=== PATIENT | male | born 1955 | race Caucasian/White ===

== ENCOUNTER 2024-02-07 11:27 | Inpatient (IN) | payer MEDICARE, SELFPAY ==
--- NOTE | ~2024-02-07 | IR_ITS ---
Ahmet removal Patient presents with a non-tunneled dialysis catheter. Patient no longer requires dialysis. Referring physician requests removal. The right neck suture was cut. The dialysis catheter was removed entirely from the right neck. Pressure was held until hemostasis was assured. A dry sterile was applied. There were no immediate complications. IR/IR cvc remov tunnel wo prt/melter clerk Impression: Ahmet removal This procedure was performed by Nathan Rondon PA-C and supervised by Dr. Heller Electronically signed by: Dioni Heller MD 04/04/2024 01:29 PM TRAM YU
--- NOTE | ~2024-02-07 | CT_ITS ---
EXAMINATION: CT HEAD WITHOUT CONTRAST CLINICAL INFORMATION: Fall. Head pain. COMPARISON: None available. TECHNIQUE: Contiguous axial imaging was performed from the skull base to vertex without intravenous administration of contrast. This CT examination was performed using dose optimization techniques as appropriate, variously including the following: *Automated exposure control *Adjustment of mA and/or kV according to patient size (this includes techniques or standardized protocols for targeted exams where dose is matched to indication/reason for exam; i.e. extremities or head) *Use of iterative reconstruction technique DLP: 744 mGy-cm FINDINGS: There is prominence of the sulci and ventricles. Deep white matter gliosis noted, all compatible with involutional change. Punctate bilateral basal ganglia calcification noted. No intra or extra-axial fluid collection or hemorrhage, mass, or mass effect. Calvarium is intact. CT/CT head/brain wo IV con IMPRESSION: No acute intracranial pathology. Electronically signed by: Robe Long MD 02/07/2024 03:42 PM EDT
--- NOTE | ~2024-02-07 | CT_ITS ---
EXAMINATION: CT CHEST WITH CONTRAST CLINICAL INFORMATION: Pain after falling COMPARISON: None available. TECHNIQUE: Multidetector volumetric CT imaging of the chest was obtained after the administration of 50 mL of Omnipaque 350 intravenous contrast without immediate adverse reactions. Axial MIP volume rendering provided. Sagittal and coronal reformatted images were obtained. This CT examination was performed using dose optimization techniques as appropriate, variously including the following: *Automated exposure control *Adjustment of mA and/or kV according to patient size (this includes techniques or standardized protocols for targeted exams where dose is matched to indication/reason for exam; i.e. extremities or head) *Use of iterative reconstruction technique DLP: 255 mGy-cm FINDINGS: ALARM INSTALLER: Unremarkable LUNGS: Lungs clear. No suspicious masses or nodules or consolidations. No pneumothorax. MEDIASTINUM: Heart size normal. No pericardial effusion. Thoracic inlet unremarkable. No significant adenopathy. Extensive coronary artery calcification. PLEURA: There is no pleural effusion. No pleural mass or thickening. AXILLA: No lymphadenopathy. UPPER ABDOMEN: Extensive hepatic steatosis. OSSEOUS STRUCTURES: Extensive spondylitic change and ankylosis throughout the thoracic spine. No fracture. Osseous structures elsewhere, including the sternum, appear intact. CT/CT chest w IV con IMPRESSION: No acute findings in the chest. Fleischner guidelines were followed. Electronically signed by: Robe Long MD 02/07/2024 04:14 PM EDT
--- NOTE | ~2024-02-07 | CT_ITS ---
EXAMINATION: CT CERVICAL SPINE WITHOUT CONTRAST CLINICAL INFORMATION: Pain after falling COMPARISON: None available. TECHNIQUE: Axial helical scans with sagittal and coronal reformats. This CT examination was performed using dose optimization techniques as appropriate, variously including the following: *Automated exposure control *Adjustment of mA and/or kV according to patient size (this includes techniques or standardized protocols for targeted exams where dose is matched to indication/reason for exam; i.e. extremities or head) *Use of iterative reconstruction technique DLP: 331 mGy-cm FINDINGS: Extensive surgical changes in the C-spine. Hardware intact. Streak artifact noted. Ankylosis noted throughout the cervical spine but no fracture or destructive lesion. No encroachment on the spinal canal. Prevertebral soft tissues are normal. CT/CT cervical spine wo IV con IMPRESSION: Extensive postsurgical change. No fracture. Fleischner guidelines were followed. Electronically signed by: Robe Long MD 02/07/2024 04:07 PM EDT
--- NOTE | ~2024-02-07 | IR_ITS ---
CLINICAL HISTORY: Patient requires dialysis. The patient presents to interventional radiology for placement of a non-tunneled central venous catheter for hemodialysis. PROCEDURES: 1. Real-time ultrasound-guided access into the right internal jugular vein after documentation of selected vessel patency, and permanent imaging storing in the patient record. 2. Placement of a 12.0 fr 20 cm non-tunneled, dual-lumen hemodialysis catheter. Clinician: Nathan Rondon PA-C MEDICATIONS: -Lidocaine 1% 10 mL SQ. -For additional details, please see nursing flowsheet. COMPLICATIONS: None. ESTIMATED BLOOD LOSS: <5 ml SPECIMENS: None FLUOROSCOPY TIME: 1.3 min PROCEDURE NOTE: Emergent consent was obtained from the hospital service. The patient was placed supine on the fluoroscopy table. A timeout was performed. The right neck and chest was prepped and draped in usual sterile fashion. Local anesthesia was administered to the access site with lidocaine. Under ultrasound guidance, the right internal jugular vein was accessed with a 4 Fr micropuncture set. A 0.035 in wire was advanced into the IVC. The tract in the vein was serially dilated. Over the wire, a 12.0 fr 20 non-tunneled, dual-lumen hemodialysis catheter was advanced, with the tip located at the cavoatrial junction. The wire was removed. The catheter was tested, flushed, and sutured to the skin. A permanent fluoroscopic image of the chest was saved to PACS. The catheter ports were packed with heparin per routine protocol. The patient was stable after the procedure and was transferred to the medical floor. There were no immediate complications. FINDINGS: 1. Patent right internal jugular vein. 2. Placement of a non-tunneled, dual-lumen hemodialysis catheter as above. 3. Catheter flushes and aspirates very well with a 10 mL syringe. No pneumothorax. IR/IR cvc insert central tunnel IMPRESSION: Placement of a non-tunneled hemodialysis catheter in the right internal jugular vein. PLAN: -The catheter may be used immediately. This procedure was performed by Nathan Rondon PA-C, and directly supervised by Dr. Heller. Electronically signed by: Dioni Heller MD 02/08/2024 01:23 PM EDT Workstation: [id number]
--- NOTE | ~2024-02-07 | CT_ITS ---
EXAMINATION: CT ABDOMEN AND PELVIS WITH CONTRAST CLINICAL INFORMATION: Pain after falling COMPARISON: None available. TECHNIQUE: Multidetector volumetric images were obtained from the superior aspect of the liver through the pubic symphysis following administration 85 mL of Omnipaque 350 intravenous contrast. Sagittal and coronal reformatted images were obtained on the technologist's workstation. Oral contrast: No This CT examination was performed using dose optimization techniques as appropriate, variously including the following: *Automated exposure control *Adjustment of mA and/or kV according to patient size (this includes techniques or standardized protocols for targeted exams where dose is matched to indication/reason for exam; i.e. extremities or head) *Use of iterative reconstruction technique DLP: 599 mGy-cm FINDINGS: LUNG BASES: The visualized lung bases are unremarkable. LIVER, GALLBLADDER, AND BILIARY TREE: Extensive hepatic steatosis. No focal hepatic mass or intrahepatic biliary dilatation. The gallbladder is unremarkable with no evidence of radiopaque gallstones, gallbladder wall thickening, or obvious pericholecystic inflammatory changes. PANCREAS: Unremarkable. SPLEEN: Unremarkable. ADRENAL GLANDS: Unremarkable. KIDNEYS AND URETERS: There is mild bilateral perinephric stranding which appears chronic. No hydronephrosis. There is a 3 mm nonobstructive stone, in the lower left kidney. Small complex cysts are observed which are too small to characterize. These could be followed nonemergently, with ultrasound. The largest cyst in the left kidney measures 4 mm. BLADDER: Unremarkable. GASTROINTESTINAL TRACT: Moderate diverticular disease present in the sigmoid but no diverticulitis. No bowel obstruction. No right or left lower quadrant inflammatory change. Appendix normal. ABDOMINAL WALL: No significant hernia is appreciated. LYMPH NODES: Normal. VASCULAR: Aorta is atherosclerotic but nonaneurysmal. PELVIC VISCERA: Calcifications in the prostate. Seminal vesicles normal in size. No ascites or adenopathy deep in the pelvis. OSSEOUS STRUCTURES: There is spondylitic and degenerative change present in the lumbar spine but no fracture. Degenerative spurring in the SI joints. No pelvic fracture. CT/CT abdomen pelvis w IV con IMPRESSION: Unremarkable study. No acute findings. No evidence for solid organ injury. Advanced hepatic steatosis is noted. Fleischner guidelines were followed. Electronically signed by: Robe Long MD 02/07/2024 04:18 PM EDT
--- NOTE | ~2024-02-07 | CT_ITS ---
CT guided biopsy PROCEDURES: 1. Limited preprocedure CT of the abdomen. Permanent images saved in PACS. 2. CT-guided nontargeted biopsy of the right kidney. 3. Limited preprocedure CT of the abdomen. Permanent images saved in PACS. CLINICIANS: Nathan Rondon PA-C MEDICATIONS: -Versed and Fentanyl , and lidocaine 1% 10 mL SQ -Antibiotics: None -For additional details, please see nursing flowsheet. COMPLICATIONS: None ESTIMATED BLOOD LOSS: < 5 ml CONTRAST: None SPECIMENS: 3 x 18 g cores were placed in saline MODERATE SEDATION TIME: 25 min PROCEDURE NOTE: The procedure, risks, benefits, and alternatives were carefully explained to the patient and written informed consent was obtained. The patient was placed prone on the CT table. A timeout was performed. A limited CT of the abdomen was performed to localize the right kidney and choose appropriate needle entry and trajectory. The patient was prepped and draped in usual sterile fashion. The skin and deeper soft tissues were anesthetized with lidocaine. Under CT guidance, a 17 gague trocar needle was advanced to the right kidney. An 18 gauge biopsy device was inserted through the trocar needle advanced into the right kidney. A total of 3 18 gague cores performed. The specimen was placed in saline. A Gelfoam slurry was then administered through the trocar needle and into the kidney. The needle was removed. A dry dressing was applied and secured with Tegaderm. There were no immediate complications. The patient was stable after the procedure and was transferred to the post anesthesia care unit. The procedure was done under moderate sedation with a dedicated nurse for monitoring of vital signs. CT/CT biopsy renal RT Impression: CT-guided nontargeted right renal biopsy This procedure was performed by Nathan Rondon PA-C and supervised by Dr Heller. Electronically signed by: Dioni Heller MD 02/29/2024 02:16 PM EDT
[2024-02-07 11:33] VITALS: BP 132/86; PULSE 116; O2SAT 98
--- NOTE | 2024-02-07 11:43 | ED_ITS ---
HPI - General Adult General Chief complaint: ETOH/Substance Use Stated complaint: ON FLOOR UNK HOW LONG,ETOH WITHDRAWAL SX,DRANK T-1 Time Seen by Provider: 02/07/24 11:42 Source: patient and EMS Mode of arrival: EMS Limitations: no limitations History of Present Illness ED Provider: Le Cheung PA-C HPI narrative: Patient is a 68 year old assigned male at with no reported medical history presenting to the emergency department today after a fall. Patient states that he does drink alcohol daily. Patient states that he had a fall and was on the floor for 4 hours. Patient denies hitting his head or any loss of consciousness. Patient states that he lives with his daughter, in her basement. EMS states that the neighbors called 911 because they hadn't seen the patient in 4 days. Patient denies any dizziness, lightheadedness, abdominal pain, nausea, vomiting, fever, chills, blurry vision, double vision, loss of vision, chest pain, difficulty breathing, shortness of breath, back pain, night sweats, pain with urination, increased urinary frequency, increased urinary urgency, blood in his urine or stool, syncope or a near syncopal episode, recent trauma or falls, bowel incontinence, bladder incontinence, or any other complaints at this time. Patient states that he has never been to a hospital or ever seen a doctor. Relieving factors: none Exacerbating factors: none Associated symptoms: denies other symptoms Treatments prior to arrival: none Related Data Allergies Allergy/AdvReac Type Severity Reaction Status Date / Time Unable to Assess Allergy Verified 02/07/24 12:05 Review of Systems 2 Constitutional: Constitutional: Reports no additional constitutional complaints, Denies chills, Denies fever(s) and Denies night sweats Eyes: Eyes: Reports no additional eye complaints, Denies blurry vision, Denies change in vision, Denies diplopia, Denies eye discharge, Denies loss of vision and Denies eye pain ENT: Denies dizziness Cardiovascular: Cardiovascular: Reports no additional cardiovascular complaints, Denies chest pain, Denies lightheadedness, Denies Loss of Consciousness and Denies dyspnea Respiratory: Respiratory: Reports no additional respiratory complaints and Denies dyspnea Gastrointestinal: Gastrointestinal: Reports no additional gastrointestinal complaints, Denies abdominal pain, Denies melena, Denies hematochezia, Denies change in bowel habits and Denies change in stool character Genitourinary: Genitourinary: Reports no additional male genitourinary complaints, Denies hematuria, Denies oliguria, Denies difficulty urinating, Denies dysuria, Denies urinary frequency, Denies urinary hesitancy, Denies urinary incontinence and Denies urinary urgency Musculoskeletal: Musculoskeletal: Reports no additional musculoskeletal complaints, Denies numbness and Denies tingling Neurologic: Denies dizziness, Denies loss of vision, Denies numbness and Denies tingling Psychiatric: Psychiatric: Reports no additional psychiatric complaints Endocrine: Endocrine: Reports no additional endocrine complaints Hematologic/Lymphatic: Hematologic/Lymphatic: Reports no additional hematologic/lymphatic complaints Allergic/Immunologic: Allergic/Immunologic: Reports no additional allergic/immunologic complaints [facility] Past Medical History Attestation statement: The following information was validated with the patient. Source: old records reviewed and nursing notes reviewed Social History Social History Smoked in Last 30 Days: No Use of substances other than those prescribed or required for medical reasons: No Advance Directives: No Advance Directives Information Provided: No Do you have a plan to hurt others: No Plan Physical Exam ED Vital Signs: Vital Signs - 24 hr 02/07/24 12:02 02/07/24 12:09 02/07/24 15:07 Temperature 99.3 F 99.3 F 98.1 F Pulse Rate 113 H 113 H 114 H Respiratory Rate 16 16 18 Blood Pressure 142/78 H 142/78 H 127/94 H Pulse Oximetry 98 98 99 Oxygen Delivery Method Room Air Room Air Room Air BMI result Body Mass Index 23.2 Const Other: covered in own feces and urine General: cooperative, no acute distress, alert and awake Nutritional Appearance: cachectic Orientation/consciousness: oriented to person and oriented to place Limitations: no limitations HENMT Head: Yes normal to inspection and Yes atraumatic Ears: hearing grossly normal bilaterally and external ears normal General nose exam: Normal external nose present, no nasal discharge noted and no epistaxis Face and sinus: Yes normal facial exam, No abrasion and No laceration Mouth: Normal oral and palatal mucosa present, no drooling and no muffled voice Eyes General: appearance normal, both eyes and all related structures Periorbital: periorbital findings normal Eyelids: Yes eyelids normal Conjunctivae: conjunctivae normal Pupils: Equal, round and reactive pupils present EOM: EOMs intact bilaterally Neck Neck: Yes normal visual inspection, Yes full ROM and Yes no lymphadenopathy Chest Other: bruising present to the right and left anterior flanks Resp Effort & Inspection: normal respiratory effort and able to speak in complete sentences GI Inspection: Yes normal to inspection Neuro General: oriented to person, oriented to place and moves all extremities Cranial nerves: Yes Equal, round and reactive pupils present Cognition (Neuro): normal cognition Extrem General: Yes normal to inspection, Yes full ROM and Yes capillary refill normal Psych Appearance: grossly normal Mental Status: mental status grossly normal Affect: normal affect Attitude: cooperative Thought process: Normal thought process present Thought content: Normal thought content present Insight: Good insight present (Psych) Medications Administered Discontinued Medications Generic Name Dose Route Start Last Admin Trade Name Freq PRN Reason Stop Dose Admin Iohexol 85 ml 02/07/24 14:09 02/07/24 14:10 Iohexol 350 Mg/Ml 100 Ml Infus..Btl IV 02/07/24 14:10 85 ml ONCE ONE Administration Medical Decision Making Medical Decision Making MDM Narrative: Patient is a 68 year old assigned male at with no reported medical history presenting to the emergency department today after being found down in his feces and urine post possible fall. Patient's physical exam was as notd in the physical exam portion of this note. Patient's blood work showed multiple abnormalities including NA 130, K 4.9, chloride 89, CO2 11, GAP 35, BUN 156, CR 14.36, total bili 1.6, AST 102, ALT 68, ALK phos 125, and total CR 946. Patient's EKG was unremarkable. Patient's CT chest, abd/pelvis, c-spine, and head were unremarkable. I consulted with the shell fisherman who recommended medical admission. I spoke to the hospital team who agreed to admission. I explained my physical exam findings as well as all test results to the patient. I answered all questions asked by the patient. Patient verbalized agreement and understanding with this treatment plan and admission. Differential Diagnosis Differential Diagnoses: The differential diagnosis associated with the presentation includes Kidney failure Rhabdo Fall Admission/Observation Consideration of admission/observation: Escalation of care including admission/observation considered Patient admitted. Consult Healthcare Provider Management of the patient was discussed with: Hospitalist (agreed to admission as noted in the MDM Rationale portion of this note.) and Employment Coordinator (spoke to Dr. Lujan as noted in the MDM Rationale portion of this note.) Lab Data [facility] Lab Attestation statement: I reviewed the patient's lab results. My interpretation of these results are in the MDM Rationale portion of this note. 02/07/24 14:35 02/07/24 14:35 Labs: Lab Results 02/07/24 02/07/24 02/07/24 Range/Units 12:50 13:07 13:14 WBC (4.8-10.8) X10*3/uL RBC (4.60-5.80) X10*6/uL Hgb (14.0-18.0) g/dl Hct (42.0-52.0) % MCV (80.0-98.0) fL MCH (27.0-33.0) pg MCHC (31.0-36.0) g/dl RDW (11.0-16.0) % Plt Count (160-400) X10*3/uL MPV (9.4-12.4) fL Immature Gran % (Auto) (0.0-0.4) % Neut % (Auto) (45-73) % Lymph % (Auto) (20-40) % Foster % (Auto) (2-11) % Eos % (Auto) (0-4) % Baso % (Auto) (0-2) % Lymph # (Auto) (1.2-4.9) X10*3/uL Foster # (Auto) (0.1-1.2) X10*3/uL Eos # (Auto) (0.0-0.4) X10*3/uL Baso # (Auto) (0.0-0.2) X10*3/uL Abs Immat Gran (auto) (0.00-0.03) X10*3/uL Absolute Neuts (auto) (2.0-8.3) x10*3/uL Absolute Nucleated RBC (0.0-0.012) X10*3/uL Nucleated RBC % (auto) (0.0-0.2) /100WBC Smear Tech's Comments PT 11.6 (11.1-13.3) SEC INR 1.0 (0.9-1.1) APTT 28.7 (26.0-36.8) SEC VBG pH 7.30 L (7.32-7.43) VBG pCO2 24 mmHg VBG pO2 63 mmHg VBG HCO3 12 L (22-26) mmol/L VBG O2 Saturation 87.0 % VBG Base Excess -12.0 mmol/L Sodium (135-145) mmol/L Potassium (3.3-5.1) mmol/L Chloride (96-108) mmol/L Carbon Dioxide (22-29) mmol/L Anion Gap (12-20) BUN (9-16) mg/dL Creatinine (0.5-1.4) mg/dL Estim Creat Clear Calc Estimated GFR Random Glucose (60-115) mg/dL Lactic Acid 1.1 (0.5-2.0) mmol/L Calcium (8.4-10.2) mg/dL Magnesium (1.6-2.6) mg/dL Total Bilirubin (0.0-1.0) mg/dL AST (5-37) U/L ALT (0-40) U/L Alkaline Phosphatase (39-117) U/L Total Creatine Kinase (38-174) U/L Troponin I High Sens 37.9 H (<3.5-35.0) ng/L Total Protein (6.5-8.0) g/dL Albumin (3.5-5.0) g/dL Ethyl Alcohol mg/dL Influenza Type A (PCR) NEGATIVE (Negative) Influenza Type B (PCR) NEGATIVE (Negative) RSV RNA Qual (PCR) NEGATIVE (Negative) SARS-CoV-2 RNA (RT-PCR) NEGATIVE (Negative) 02/07/24 Range/Units 14:35 WBC 9.4 (4.8-10.8) X10*3/uL RBC 3.37 L (4.60-5.80) X10*6/uL Hgb 11.6 L (14.0-18.0) g/dl Hct 30.8 L (42.0-52.0) % MCV 91.4 (80.0-98.0) fL MCH 34.4 H (27.0-33.0) pg MCHC 37.7 H (31.0-36.0) g/dl RDW 14.4 (11.0-16.0) % Plt Count 73 L (160-400) X10*3/uL MPV 11.7 (9.4-12.4) fL Immature Gran % (Auto) 1.8 H (0.0-0.4) % Neut % (Auto) 77.1 H (45-73) % Lymph % (Auto) 2.1 L (20-40) % Foster % (Auto) 17.4 H (2-11) % Eos % (Auto) 1.0 (0-4) % Baso % (Auto) 0.6 (0-2) % Lymph # (Auto) 0.2 L (1.2-4.9) X10*3/uL Foster # (Auto) 1.6 H (0.1-1.2) X10*3/uL Eos # (Auto) 0.1 (0.0-0.4) X10*3/uL Baso # (Auto) 0.1 (0.0-0.2) X10*3/uL Abs Immat Gran (auto) 0.17 H (0.00-0.03) X10*3/uL Absolute Neuts (auto) 7.2 (2.0-8.3) x10*3/uL Absolute Nucleated RBC 0.000 (0.0-0.012) X10*3/uL Nucleated RBC % (auto) 0.0 (0.0-0.2) /100WBC Smear Tech's Comments VERIFIED PT (11.1-13.3) SEC INR (0.9-1.1) APTT (26.0-36.8) SEC VBG pH (7.32-7.43) VBG pCO2 mmHg VBG pO2 mmHg VBG HCO3 (22-26) mmol/L VBG O2 Saturation % VBG Base Excess mmol/L Sodium 130 L (135-145) mmol/L Potassium 4.9 (3.3-5.1) mmol/L Chloride 89 L (96-108) mmol/L Carbon Dioxide 11 L (22-29) mmol/L Anion Gap 35 H (12-20) BUN 156 H (9-16) mg/dL Creatinine 14.36 H* (0.5-1.4) mg/dL Estim Creat Clear Calc 4.9 Estimated GFR 3 Random Glucose 151 H (60-115) mg/dL Lactic Acid (0.5-2.0) mmol/L Calcium 8.6 (8.4-10.2) mg/dL Magnesium 1.8 (1.6-2.6) mg/dL Total Bilirubin 1.6 H (0.0-1.0) mg/dL AST 102 H (5-37) U/L ALT 68 H (0-40) U/L Alkaline Phosphatase 125 H (39-117) U/L Total Creatine Kinase 946 H (38-174) U/L Troponin I High Sens (<3.5-35.0) ng/L Total Protein 6.8 (6.5-8.0) g/dL Albumin 3.6 (3.5-5.0) g/dL Ethyl Alcohol < 10 mg/dL Influenza Type A (PCR) (Negative) Influenza Type B (PCR) (Negative) RSV RNA Qual (PCR) (Negative) SARS-CoV-2 RNA (RT-PCR) (Negative) Independent Interpretation I performed an independent interpretation of an: EKG and CT Scan Interpretation: My interpretation is in agreement with the radiologist's impression of these imaging studies. L EXAMINATION: CT HEAD WITHOUT CONTRAST CLINICAL INFORMATION: Fall. Head pain. COMPARISON: None available. TECHNIQUE: Contiguous axial imaging was performed from the skull base to vertex without intravenous administration of contrast. This CT examination was performed using dose optimization techniques as appropriate, variously including the following: *Automated exposure control *Adjustment of mA and/or kV according to patient size (this includes techniques or standardized protocols for targeted exams where dose is matched to indication/reason for exam; i.e. extremities or head) *Use of iterative reconstruction technique DLP: 744 mGy-cm FINDINGS: There is prominence of the sulci and ventricles. Deep white matter gliosis noted, all compatible with involutional change. Punctate bilateral basal ganglia calcification noted. No intra or extra-axial fluid collection or hemorrhage, mass, or mass effect. Calvarium is intact. CT/CT head/brain wo IV con IMPRESSION: No acute intracranial pathology. Electronically signed by: Robe Long MD 02/07/2024 03:42 PM EDT Dictated By: Robe Long MD Signed By: Electronically signed by Robe Long MD 02/07/24 1542 EXAMINATION: CT CHEST WITH CONTRAST CLINICAL INFORMATION: Pain after falling COMPARISON: None available. TECHNIQUE: Multidetector volumetric CT imaging of the chest was obtained after the administration of 50 mL of Omnipaque 350 intravenous contrast without immediate adverse reactions. Axial MIP volume rendering provided. Sagittal and coronal reformatted images were obtained. This CT examination was performed using dose optimization techniques as appropriate, variously including the following: *Automated exposure control *Adjustment of mA and/or kV according to patient size (this includes techniques or standardized protocols for targeted exams where dose is matched to indication/reason for exam; i.e. extremities or head) *Use of iterative reconstruction technique DLP: 255 mGy-cm FINDINGS: STAFF EDITOR: Unremarkable LUNGS: Lungs clear. No suspicious masses or nodules or consolidations. No pneumothorax. MEDIASTINUM: Heart size normal. No pericardial effusion. Thoracic inlet unremarkable. No significant adenopathy. Extensive coronary artery calcification. PLEURA: There is no pleural effusion. No pleural mass or thickening. AXILLA: No lymphadenopathy. UPPER ABDOMEN: Extensive hepatic steatosis. OSSEOUS STRUCTURES: Extensive spondylitic change and ankylosis throughout the thoracic spine. No fracture. Osseous structures elsewhere, including the sternum, appear intact. CT/CT chest w IV con IMPRESSION: No acute findings in the chest. Fleischner guidelines were followed. Electronically signed by: Robe Long MD 02/07/2024 04:14 PM EDT Dictated By: Robe Long MD Signed By: Electronically signed by Robe Long MD 02/07/24 1614 EXAMINATION: CT CERVICAL SPINE WITHOUT CONTRAST CLINICAL INFORMATION: Pain after falling COMPARISON: None available. TECHNIQUE: Axial helical scans with sagittal and coronal reformats. This CT examination was performed using dose optimization techniques as appropriate, variously including the following: *Automated exposure control *Adjustment of mA and/or kV according to patient size (this includes techniques or standardized protocols for targeted exams where dose is matched to indication/reason for exam; i.e. extremities or head) *Use of iterative reconstruction technique DLP: 331 mGy-cm FINDINGS: Extensive surgical changes in the C-spine. Hardware intact. Streak artifact noted. Ankylosis noted throughout the cervical spine but no fracture or destructive lesion. No encroachment on the spinal canal. Prevertebral soft tissues are normal. CT/CT cervical spine wo IV con IMPRESSION: Extensive postsurgical change. No fracture. Fleischner guidelines were followed. Electronically signed by: Robe Long MD 02/07/2024 04:07 PM EDT Dictated By: Robe Long MD Signed By: Electronically signed by Robe Long MD 02/07/24 1607 EXAMINATION: CT ABDOMEN AND PELVIS WITH CONTRAST CLINICAL INFORMATION: Pain after falling COMPARISON: None available. TECHNIQUE: Multidetector volumetric images were obtained from the superior aspect of the liver through the pubic symphysis following administration 85 mL of Omnipaque 350 intravenous contrast. Sagittal and coronal reformatted images were obtained on the technologist's workstation. Oral contrast: No This CT examination was performed using dose optimization techniques as appropriate, variously including the following: *Automated exposure control *Adjustment of mA and/or kV according to patient size (this includes techniques or standardized protocols for targeted exams where dose is matched to indication/reason for exam; i.e. extremities or head) *Use of iterative reconstruction technique DLP: 599 mGy-cm FINDINGS: LUNG BASES: The visualized lung bases are unremarkable. LIVER, GALLBLADDER, AND BILIARY TREE: Extensive hepatic steatosis. No focal hepatic mass or intrahepatic biliary dilatation. The gallbladder is unremarkable with no evidence of radiopaque gallstones, gallbladder wall thickening, or obvious pericholecystic inflammatory changes. PANCREAS: Unremarkable. SPLEEN: Unremarkable. ADRENAL GLANDS: Unremarkable. KIDNEYS AND URETERS: There is mild bilateral perinephric stranding which appears chronic. No hydronephrosis. There is a 3 mm nonobstructive stone, in the lower left kidney. Small complex cysts are observed which are too small to characterize. These could be followed nonemergently, with ultrasound. The largest cyst in the left kidney measures 4 mm. BLADDER: Unremarkable. GASTROINTESTINAL TRACT: Moderate diverticular disease present in the sigmoid but no diverticulitis. No bowel obstruction. No right or left lower quadrant inflammatory change. Appendix normal. ABDOMINAL WALL: No significant hernia is appreciated. LYMPH NODES: Normal. VASCULAR: Aorta is atherosclerotic but nonaneurysmal. PELVIC VISCERA: Calcifications in the prostate. Seminal vesicles normal in size. No ascites or adenopathy deep in the pelvis. OSSEOUS STRUCTURES: There is spondylitic and degenerative change present in the lumbar spine but no fracture. Degenerative spurring in the SI joints. No pelvic fracture. CT/CT abdomen pelvis w IV con IMPRESSION: Unremarkable study. No acute findings. No evidence for solid organ injury. Advanced hepatic steatosis is noted. Fleischner guidelines were followed. Electronically signed by: Robe Long MD 02/07/2024 04:18 PM EDT Dictated By: Robe Long MD Signed By: Electronically signed by Robe Long MD 02/07/24 1618 Vent. Rate: 129 BPM Atrial Rate: 129 BPM P-R Int: 124 ms QRS Dur: 072 ms QT Int: 302 ms P-R-T Axes: 000 005 003 degrees QTc Int: 442 ms Sinus tachycardia with occasional Premature ventricular complexes Otherwise normal ECG No previous ECGs available DD/ 1224 Radiology Impression Discussion of test interpretation with radiology: I have reviewed the radiologist's reading. Independent Historian Clinical information obtained from an independent historian. History obtained from or confirmed by: EMS (EMS provided additional history and confirmed the history provided by the patient.) Critical Care Time Critical Care Time Critical Care Time: Yes Total Critical Care Time: 64 Attestation: I spent 64 minutes of Critical Care Time with this patient. This does not include time spent on separately reported billable procedures. Discharge Plan Discharge Clinical Impression: Acute kidney failure Patient Disposition: Admitted As Inpatient Print Language: Kittitian
--- NOTE | 2024-02-07 11:44 | ECG_ITS ---
Test Reason : WEAKNESS Blood Pressure : / mmHG Vent. Rate : 129 BPM Atrial Rate : 129 BPM P-R Int : 124 ms QRS Dur : 072 ms QT Int : 302 ms P-R-T Axes : 000 005 003 degrees QTc Int : 442 ms Sinus tachycardia Otherwise normal ECG No previous ECGs available Referred By: Le Cheung Electronically Signed By:SANIA CAIN
[2024-02-07 12:02] VITALS: BP 142/78; PULSE 113; RESP 16; TEMP 37.4; O2SAT 98; BMI 23.2
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
[2024-02-07 12:09] VITALS: BP 142/78; PULSE 113; RESP 16; TEMP 37.4; O2SAT 98
--- NOTE | 2024-02-07 12:15 | PC.NURSE ---
Pt cleaned thoroughly of feces and urine and clothes bagged up at bedside and pt put in hospital gown and given blankets and urinal.
[2024-02-07 13:18] LABS: Troponin-I High Sensitivity 37.9 ng/L (<3.5-35.0)
[2024-02-07 13:32] LABS: Lactic Acid 1.1 mmol/L (0.5-2.0); Prothrombin Time 11.6 SEC (11.1-13.3)
[2024-02-07 13:34] LABS: Influenza A PCR NEGATIVE (Negative); Influenza B PCR NEGATIVE (Negative); Resp Syncy Virus RNA Qual PCR NEGATIVE (Negative); SARS COV2 PCR INHOUSE NEGATIVE (Negative)
[2024-02-07 13:35] LABS: Partial Thromboplastin Time 28.7 SEC (26.0-36.8)
[2024-02-07 13:44] LABS: Venous Blood Gas Refer to POC result
[2024-02-07 13:45] LABS: VBG HCO3 12 mmol/L (22-26); VBG pCO2 24 mmHg; VBG pO2 63 mmHg
--- NOTE | 2024-02-07 14:00 | PC.NURSE ---
put urinal next to patient for when able to urinate pt states at this time he is unable.
[2024-02-07] MEDS: iohexoL 350 MG/ML 100 ML INFUS..BTL 85 ML IV (14:10)
--- NOTE | 2024-02-07 14:30 | PC.NURSE ---
locked pts wallet with security with pts permission, pt has $180 in his wallet
[2024-02-07 15:02] LABS: Alanine Aminotransferase 68 U/L (0-40); Albumin Level 3.6 g/dL (3.5-5.0); Alkaline Phosphatase 125 U/L (39-117); Anion Gap 35 (12-20); Aspartate Amino Transferase 102 U/L (5-37); Bilirubin Total 1.6 mg/dL (0.0-1.0); Calcium 8.6 mg/dL (8.4-10.2); Carbon Dioxide 11 mmol/L (22-29); Chloride 89 mmol/L (96-108); Creatinine Clr Calc Pharmacy 4.9; Estimated Glomerular Filt Rate 3; Ethanol < 10 mg/dL; Glucose Random 151 mg/dL (60-115); Magnesium 1.8 mg/dL (1.6-2.6); Potassium 4.9 mmol/L (3.3-5.1); Sodium 130 mmol/L (135-145); Total Protein 6.8 g/dL (6.5-8.0)
[2024-02-07 15:03] LABS: Basophils Absolute Auto 0.1 X10*3/uL (0.0-0.2); Basophils Percent Auto 0.6 % (0-2); Eosinophils Absolute Auto 0.1 X10*3/uL (0.0-0.4); Hematocrit 30.8 % (42.0-52.0); Hemoglobin 11.6 g/dl (14.0-18.0); Imm Gran Abs Auto 0.17 X10*3/uL (0.00-0.03); Imm Gran Pct Auto 1.8 % (0.0-0.4); Lymphocytes Absolute Auto 0.2 X10*3/uL (1.2-4.9); Lymphocytes Percent Auto 2.1 % (20-40); MANUAL DIFF FLAG SCAN; Mean Corpuscular Hemoglobin 34.4 pg (27.0-33.0); Mean Corpuscular Volume 91.4 fL (80.0-98.0); Mean Platelet Volume 11.7 fL (9.4-12.4); Monocytes Absolute Auto 1.6 X10*3/uL (0.1-1.2); Monocytes Percent Auto 17.4 % (2-11); Neutrophils Absolute Auto 7.2 x10*3/uL (2.0-8.3); Neutrophils Percent Auto 77.1 % (45-73); Red Blood Count 3.37 X10*6/uL (4.60-5.80); Red Cell Distribution Width 14.4 % (11.0-16.0); SCAN SMEAR FLAG 1; White Blood Count 9.4 X10*3/uL (4.8-10.8)
[2024-02-07 15:06] LABS: Mean Corpuscular HGB Conc 37.7 g/dl (31.0-36.0); Platelet Count 73 X10*3/uL (160-400)
[2024-02-07 15:07] VITALS: BP 127/94; PULSE 114; RESP 18; TEMP 36.7; O2SAT 99
[2024-02-07 15:07] LABS: SLIDE REVIEW VERIFIED
[2024-02-07 15:11] LABS: Blood Urea Nitrogen 156 mg/dL (9-16)
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
[2024-02-07 17:01] VITALS: BP 125/64; PULSE 113; RESP 20; TEMP 36.7; O2SAT 100
--- NOTE | 2024-02-07 17:14 | PC.NURSE ---
pts son: Master Motneiro [phone]
--- NOTE | 2024-02-07 17:17 | PC.NURSE ---
Pt given new urinal and states he hasn't had the urge to urinate yet. MD made aware. will bladder scan.
--- NOTE | 2024-02-07 17:26 | PHA.MEDREC ---
Addendum entered by Dioni Whelan [facility] 02/07/24 17:29: Med rec reviewed Original Note: Pharmacy Consult ? Medication Reconciliation Pharmacy has completed the medication reconciliation. Patient states they are not taking any medication at this time.
[2024-02-07] MEDS: PHENobarbitaL sodium 130 MG/ML IM ONCE 350 MG IM (18:14)
[2024-02-07] MEDS: 0.9 % Sodium Chloride 1,000 ML 999 ML IV (18:19)
[2024-02-07 18:23] VITALS: BP 134/72; PULSE 125; RESP 17; TEMP 37.1; O2SAT 98
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
[2024-02-07 19:21] LABS: Anion Gap 36 (12-20); Blood Urea Nitrogen 165 mg/dL (9-16); Calcium 8.3 mg/dL (8.4-10.2); Carbon Dioxide 10 mmol/L (22-29); Chloride 89 mmol/L (96-108); Creatinine Clr Calc Pharmacy 4.9; Estimated Glomerular Filt Rate 3; Glucose Random 161 mg/dL (60-115); Potassium 5.1 mmol/L (3.3-5.1); Sodium 130 mmol/L (135-145)
[2024-02-07 19:24] LABS: Osmolality, Serum 342 mosm/kg (281-305)
[2024-02-07] MEDS: 0.9 % Sodium Chloride 1,000 ML 100 ML IVCONT (19:29)
[2024-02-07 19:45] LABS: Venous Blood Gas Refer to POC result
[2024-02-07 19:46] LABS: VBG Base Excess -12.9 mmol/L; VBG HCO3 9 mmol/L (22-26); VBG pCO2 16 mmHg; VBG pH 7.37 (7.32-7.43); VBG pO2 204 mmHg
--- NOTE | 2024-02-07 20:10 | PC.NURSE ---
[place] catheter removed, 16 Fr F/C inserted per MD order with 135 mL of immediate output of cloudy, dark yellow urine. Urine specimen collected and sent to lab.
[2024-02-07] MEDS: Sodium Bicarbonate 8.4% 100 MEQ in Dextrose 5 % 900 ML IV (20:22)
[2024-02-07 20:24] LABS: Appearance Urine Cloudy; Color Urine BROWN; Glucose Urine UA 100 mg/dL (Negative); Leukocyte Esterase Urine Trace (Negative); PH 5.5 (5.0-9.0); Specific Gravity - Urine 1.025 (1.005-1.025); UMIC TRIGGER UACC YES; Urine Blood Large (3+) (Negative); Urine Ketones 15 mg/dL (Negative); Urine Protein 300 (3+) mg/dL (Neg-Trace)
--- NOTE | 2024-02-07 20:30 | PC.NURSE ---
Patient medicated per MAR, no distress noted.
[2024-02-07 20:44] LABS: Bacteria Urine 2+ (None Seen); Nitrite Urine Positive (Negative); RBC Urine >20 /HPF (0-2); Squamous Epithelial Cell Urine 0-2 /HPF (0-2); UACC Culture Trigger YES; WBC Urine >50 /HPF (0-5)
[2024-02-07 20:46] LABS: Creatinine Urine 110.02 mg/dL
[2024-02-07] MEDS: PHENobarbitaL sodium 130 MG/ML VIAL IM Q3Hx2 265 MG IM (22:02)
[2024-02-07] MEDS: ondansetron HCL 4 MG/2 ML VIAL IVPUSH (23:33)
[2024-02-08] VITALS (8 sets, daily range): BP systolic 136–168; BP diastolic 73–94; PULSE 99–124; RESP 16–20; TEMP 36.2–37.3; O2SAT 94–100
[2024-02-08] MEDS: PHENobarbitaL sodium 130 MG/ML VIAL IM Q3Hx2 265 MG IM (01:03)
[2024-02-08] MEDS: 0.9 % Sodium Chloride Flush 3 ML SYRINGE IVFLUSH ×2 (01:11→22:36)
[2024-02-08 06:03] LABS: Hematocrit 27.2 % (42.0-52.0); Mean Corpuscular Volume 88.3 fL (80.0-98.0); Mean Platelet Volume 11.6 fL (9.4-12.4); NRBC Pct Auto 0.3 /100WBC (0.0-0.2); Red Blood Count 3.08 X10*6/uL (4.60-5.80); Red Cell Distribution Width 13.8 % (11.0-16.0); White Blood Count 7.8 X10*3/uL (4.8-10.8)
[2024-02-08 06:06] LABS: Hemoglobin 9.2 g/dl (14.0-18.0); Platelet Count 66 X10*3/uL (160-400)
[2024-02-08 06:07] LABS: Mean Corpuscular HGB Conc 33.8 g/dl (31.0-36.0); Mean Corpuscular Hemoglobin 29.8 pg (27.0-33.0)
[2024-02-08 06:34] LABS: Alanine Aminotransferase 56 U/L (0-40); Albumin Level 3.1 g/dL (3.5-5.0); Alkaline Phosphatase 120 U/L (39-117); Anion Gap 31 (12-20); Aspartate Amino Transferase 101 U/L (5-37); Bilirubin Total 1.8 mg/dL (0.0-1.0); Calcium 7.8 mg/dL (8.4-10.2); Carbon Dioxide 13 mmol/L (22-29); Chloride 86 mmol/L (96-108); Creatinine Clr Calc Pharmacy 5.3; Estimated Glomerular Filt Rate 4; Glucose Random 160 mg/dL (60-115); Potassium 4.8 mmol/L (3.3-5.1); Sodium 125 mmol/L (135-145); Total Protein 5.8 g/dL (6.5-8.0)
[2024-02-08 06:39] LABS: Band Neutrophils Percent 8 % (3-5); Blood Urea Nitrogen 160 mg/dL (9-16); Eosinophils Absolute Manual 0.1 X10*3/uL (0.0-0.4); Eosinophils Percent Manual 1 % (0-4); Lymphocytes Absolute Manual 0.1 X10*3/uL (1.2-4.9); Lymphocytes Percent Manual 1 % (20-40); Monocytes Absolute Manual 0.9 X10*3/uL (0.1-1.2); Monocytes Percent Manual 12 % (2-11); Neutrophils Absolute Manual 6.7 X10*3/uL (2.0-8.3); Neutrophils Percent Manual 78 % (45-73)
[2024-02-08 06:40] LABS: Acanthocytes 1+ (0-2) /OIF; Platelet Estimate DECREASED (NORMAL); Platelet Morphology Comment NORMAL; RBC Morphology NOTED; Schistocytes 1+ (0-2) /OIF; Target Cells 1+ (5-14) /OIF; Tear Drop Cells 1+ (0-2) /OIF
[2024-02-08 06:41] LABS: Dohle Bodies PRESENT; Hypochromasia 1+ (5-14) /OIF; Toxic Vacuolation PRESENT
[2024-02-08] MEDS: PHENobarbitaL 15 MG TABLET 45 MG PO ×2 (08:32→22:36)
[2024-02-08] MEDS: cefTRIAXone sodium 1 GM in 0.9 % Sodium Chloride 50 ML IV (08:32)
[2024-02-08] MEDS: Sodium Bicarbonate 650 MG TABLET 1300 MG PO ×2 (08:32→22:36)
[2024-02-08] MEDS: 0.9 % Sodium Chloride 1,000 ML 100 ML IVCONT (08:32)
[2024-02-08 10:42] LABS: Lactate Dehydrogenase 377 U/L (118-273)
[2024-02-08 11:07] LABS: Erythrocyte Sedimentation Rate 48 MM/HR (0-15)
--- NOTE | 2024-02-08 11:07 | HO.PM.IMPN ---
Subjective Subjective Date of Service: 02/08/24 Interval History: Seen and evaluated this morning CBC showing schistocytes more altered and confused no other overnight events Na dropped to 125 Review of Systems Review of Systems: Yes Unobtainable due to mental status Physical Exam Vital Signs: Vital Signs: Last Vital Signs Temp 99.1 F 02/08/24 07:10 Pulse 109 H 02/08/24 07:10 Resp 20 02/08/24 07:10 BP 143/82 H 02/08/24 07:10 Pulse Ox 98 02/08/24 07:10 O2 Del Method Room Air 02/08/24 07:10 BMI result Body Mass Index 23.2 Const: Other: Constitutional : Awake with stimulation, interactive, looks weak and frail Neck : Normal inspection, Supple Cardiovascular : RRR, no JVP, no lower extremity edema Respiratory : good bilateral air entry, no crackles, wheezes or rhonchi Gastrointestinal: soft, lax, Normal bowel sounds, Non tender Skin : Warm, Dry Neurological : Alert with stimulation & disoriented and hypoactive, No focal deficit Objective Data Active Medications Acetaminophen (Acetaminophen 325 Mg Tablet) 650 mg PO Q6H PRN PRN Reason: Pain, Mild (Pain Scale 1-3), fever or headache Calcium Carbonate (Calcium Carbonate 750 Mg Tab.Chew) 750 mg PO Q4H PRN PRN Reason: Heartburn Ceftriaxone Sodium 1 gm/ (Sodium Chloride) 50 mls @ 100 mls/hr IV Q24H [facility] Last Infusion: 02/08/24 09:07 Dose: Infused Documented By: TOLU Sodium Chloride (Ns) 1,000 mls @ 100 mls/hr IVCONT .Q10H [facility] Last Admin: 02/08/24 08:32 Dose: 100 mls/hr Documented By: TOLU Magnesium Hydroxide (Milk Of Magnesia 30 Ml Oral.Susp) 30 ml PO DAILY PRN PRN Reason: Constipation Melatonin (Melatonin 3 Mg Tablet) 6 mg PO BEDTIME PRN PRN Reason: Insomnia Ondansetron HCl (Ondansetron Hcl 4 Mg/2 Ml Vial) 4 mg IVPUSH Q4H PRN PRN Reason: Nausea and Vomiting Pharmacy Consult (Consult Rx Etoh Phenob Im/Po) 1 each MISCELLANE ONCE PRN; Protocol PRN Reason: Consult order Phenobarbital (Phenobarbital 15 Mg Tablet) 45 mg PO BID [facility]; Protocol Stop: 02/09/24 21:01 Last Admin: 02/08/24 08:32 Dose: 45 mg Documented By: TOLU Phenobarbital (Phenobarbital 30 Mg Tablet) 30 mg PO BID [facility]; Protocol Stop: 02/11/24 21:01 Phenobarbital (Phenobarbital 30 Mg Tablet) 30 mg PO DAILY [facility]; Protocol Stop: 02/13/24 09:01 Sodium Bicarbonate (Sodium Bicarbonate 650 Mg Tablet) 1,300 mg PO TID [facility] Last Admin: 02/08/24 08:32 Dose: 1,300 mg Documented By: TOLU Sodium Chloride (0.9 % Sodium Chloride Flush 3 Ml Syringe) 3 ml IVFLUSH QSHIFT [facility] Last Admin: 02/08/24 08:33 Dose: Not Given Documented By: TOLU Non-Admin Reason: IV Running Labs 02/08/24 05:39 02/08/24 05:39 Labs: Laboratory Results - last 24 hr 02/07/24 02/07/24 02/07/24 12:50 13:07 13:14 MCV MCH MCHC RDW Plt Count MPV Immature Gran % (Auto) Neut % (Auto) Lymph % (Auto) Foster % (Auto) Eos % (Auto) Baso % (Auto) Lymph # (Auto) Foster # (Auto) Eos # (Auto) Baso # (Auto) Abs Immat Gran (auto) Absolute Neuts (auto) Absolute Nucleated RBC Nucleated RBC % (auto) Neutrophils % (Manual) Band Neutrophils % Lymphocytes % (Manual) Monocytes % (Manual) Eosinophils % (Manual) Abs Neuts (Manual) Lymphocytes # (Manual) Monocytes # (Manual) Eosinophils # (Manual) Toxic Vacuolation Dohle Bodies Platelet Estimate Plt Morphology Comment RBC Morphology Hypochromasia Target Cells Tear Drop Cells Acanthocytes (Spur) Schistocytes Smear Tech's Comments PT 11.6 INR 1.0 APTT 28.7 VBG pH 7.30 L VBG pCO2 24 VBG pO2 63 VBG HCO3 12 L VBG O2 Saturation 87.0 VBG Base Excess -12.0 Anion Gap Estim Creat Clear Calc Estimated GFR Random Glucose Osmolality Lactic Acid 1.1 Calcium Magnesium Total Bilirubin AST ALT Alkaline Phosphatase Lactate Dehydrogenase Total Creatine Kinase Troponin I High Sens 37.9 H Total Protein Albumin Urine Color Urine Appearance Urine pH Ur Specific [place] Urine Protein Urine Glucose (UA) Urine Ketones Urine Blood Urine Nitrite Ur Leukocyte Esterase Urine RBC Urine WBC Urine WBC Clumps Ur Squamous Epith Cells Ur Transition Epith Cell Ur Renal Epithelial Cell Calcium Oxalate Crystal Leucine Crystals Cystine Crystals Tyrosine Crystals Other Crystals Urine Bacteria Urine Parasites Bilirubin Casts Epithelial Casts Fatty Casts Hyaline Casts Granular Casts Waxy Casts Broad Casts RBC Casts WBC Casts Other Casts Urine Trichomonas Urine Yeast Ur Random Sodium Urine Creatinine Ethyl Alcohol Influenza Type A (PCR) NEGATIVE Influenza Type B (PCR) NEGATIVE RSV RNA Qual (PCR) NEGATIVE SARS-CoV-2 RNA (RT-PCR) NEGATIVE 02/07/24 02/07/24 02/07/24 14:35 18:35 19:14 MCV 91.4 MCH 34.4 H MCHC 37.7 H RDW 14.4 Plt Count 73 L MPV 11.7 Immature Gran % (Auto) 1.8 H Neut % (Auto) 77.1 H Lymph % (Auto) 2.1 L Foster % (Auto) 17.4 H Eos % (Auto) 1.0 Baso % (Auto) 0.6 Lymph # (Auto) 0.2 L Foster # (Auto) 1.6 H Eos # (Auto) 0.1 Baso # (Auto) 0.1 Abs Immat Gran (auto) 0.17 H Absolute Neuts (auto) 7.2 Absolute Nucleated RBC 0.000 Nucleated RBC % (auto) 0.0 Neutrophils % (Manual) Band Neutrophils % Lymphocytes % (Manual) Monocytes % (Manual) Eosinophils % (Manual) Abs Neuts (Manual) Lymphocytes # (Manual) Monocytes # (Manual) Eosinophils # (Manual) Toxic Vacuolation Dohle Bodies Platelet Estimate Plt Morphology Comment RBC Morphology Hypochromasia Target Cells Tear Drop Cells Acanthocytes (Spur) Schistocytes Smear Tech's Comments VERIFIED PT INR APTT VBG pH VBG pCO2 VBG pO2 VBG HCO3 VBG O2 Saturation VBG Base Excess Anion Gap 35 H 36 H Estim Creat Clear Calc 4.9 4.9 Estimated GFR 3 3 Random Glucose 151 H 161 H Osmolality 342 H Lactic Acid Calcium 8.6 8.3 L Magnesium 1.8 Total Bilirubin 1.6 H AST 102 H ALT 68 H Alkaline Phosphatase 125 H Lactate Dehydrogenase Total Creatine Kinase 946 H 783 H Troponin I High Sens Total Protein 6.8 Albumin 3.6 Urine Color Urine Appearance Urine pH Ur Specific [place] Urine Protein Urine Glucose (UA) Urine Ketones Urine Blood Urine Nitrite Ur Leukocyte Esterase Urine RBC Urine WBC Urine WBC Clumps Ur Squamous Epith Cells Ur Transition Epith Cell Ur Renal Epithelial Cell Calcium Oxalate Crystal Leucine Crystals Cystine Crystals Tyrosine Crystals Other Crystals Urine Bacteria Urine Parasites Bilirubin Casts Epithelial Casts Fatty Casts Hyaline Casts Granular Casts Waxy Casts Broad Casts RBC Casts WBC Casts Other Casts Urine Trichomonas Urine Yeast Ur Random Sodium Urine Creatinine Ethyl Alcohol < 10 Influenza Type A (PCR) Influenza Type B (PCR) RSV RNA Qual (PCR) SARS-CoV-2 RNA (RT-PCR) 02/07/24 02/07/24 02/07/24 19:41 20:05 20:05 MCV MCH MCHC RDW Plt Count MPV Immature Gran % (Auto) Neut % (Auto) Lymph % (Auto) [place] % (Auto) Eos % (Auto) Baso % (Auto) Lymph # (Auto) [place] # (Auto) Eos # (Auto) Baso # (Auto) Abs Immat Gran (auto) Absolute Neuts (auto) Absolute Nucleated RBC Nucleated RBC % (auto) Neutrophils % (Manual) Band Neutrophils % Lymphocytes % (Manual) Monocytes % (Manual) Eosinophils % (Manual) Abs Neuts (Manual) Lymphocytes # (Manual) Monocytes # (Manual) Eosinophils # (Manual) Toxic Vacuolation Dohle Bodies Platelet Estimate Plt Morphology Comment RBC Morphology Hypochromasia Target Cells Tear Drop Cells Acanthocytes (Spur) Schistocytes Smear Tech's Comments PT INR APTT VBG pH 7.37 VBG pCO2 16 VBG pO2 204 VBG HCO3 9 L VBG O2 Saturation 100.0 VBG Base Excess -12.9 Anion Gap Estim Creat Clear Calc Estimated GFR Random Glucose Osmolality Lactic Acid Calcium Magnesium Total Bilirubin AST ALT Alkaline Phosphatase Lactate Dehydrogenase Total Creatine Kinase Troponin I High Sens Total Protein Albumin Urine Color BROWN Cancelled Urine Appearance Cloudy Urine pH Ur Specific [place] Urine Protein Urine Glucose (UA) Urine Ketones Urine Blood Urine Nitrite Ur Leukocyte Esterase Urine RBC Urine WBC Urine WBC Clumps Ur Squamous Epith Cells Ur Transition Epith Cell Ur Renal Epithelial Cell Calcium Oxalate Crystal Leucine Crystals Cystine Crystals Tyrosine Crystals Other Crystals Urine Bacteria Urine Parasites Bilirubin Casts Epithelial Casts Fatty Casts Hyaline Casts Granular Casts Waxy Casts Broad Casts RBC Casts WBC Casts Other Casts Urine Trichomonas Urine Yeast Ur Random Sodium Urine Creatinine Ethyl Alcohol Influenza Type A (PCR) Influenza Type B (PCR) RSV RNA Qual (PCR) SARS-CoV-2 RNA (RT-PCR) 02/07/24 02/07/24 02/07/24 20:05 20:05 20:05 MCV MCH MCHC RDW Plt Count MPV Immature Gran % (Auto) Neut % (Auto) Lymph % (Auto) [place] % (Auto) Eos % (Auto) Baso % (Auto) Lymph # (Auto) [place] # (Auto) Eos # (Auto) Baso # (Auto) Abs Immat Gran (auto) Absolute Neuts (auto) Absolute Nucleated RBC Nucleated RBC % (auto) Neutrophils % (Manual) Band Neutrophils % Lymphocytes % (Manual) Monocytes % (Manual) Eosinophils % (Manual) Abs Neuts (Manual) Lymphocytes # (Manual) Monocytes # (Manual) Eosinophils # (Manual) Toxic Vacuolation Dohle Bodies Platelet Estimate Plt Morphology Comment RBC Morphology Hypochromasia Target Cells Tear Drop Cells Acanthocytes (Spur) Schistocytes Smear Tech's Comments PT INR APTT VBG pH VBG pCO2 VBG pO2 VBG HCO3 VBG O2 Saturation VBG Base Excess Anion Gap Estim Creat Clear Calc Estimated GFR Random Glucose Osmolality Lactic Acid Calcium Magnesium Total Bilirubin AST ALT Alkaline Phosphatase Lactate Dehydrogenase Total Creatine Kinase Troponin I High Sens Total Protein Albumin Urine Color Urine Appearance Cancelled Urine pH 5.5 Cancelled Ur Specific [place] 1.025 Cancelled Urine Protein 300 (3+) H Urine Glucose (UA) Urine Ketones Urine Blood Urine Nitrite Ur Leukocyte Esterase Urine RBC Urine WBC Urine WBC Clumps Ur Squamous Epith Cells Ur Transition Epith Cell Ur Renal Epithelial Cell Calcium Oxalate Crystal Leucine Crystals Cystine Crystals Tyrosine Crystals Other Crystals Urine Bacteria Urine Parasites Bilirubin Casts Epithelial Casts Fatty Casts Hyaline Casts Granular Casts Waxy Casts Broad Casts RBC Casts WBC Casts Other Casts Urine Trichomonas Urine Yeast Ur Random Sodium Urine Creatinine Ethyl Alcohol Influenza Type A (PCR) Influenza Type B (PCR) RSV RNA Qual (PCR) SARS-CoV-2 RNA (RT-PCR) 02/07/24 02/07/24 02/07/24 20:05 20:05 20:05 MCV MCH MCHC RDW Plt Count MPV Immature Gran % (Auto) Neut % (Auto) Lymph % (Auto) [place] % (Auto) Eos % (Auto) Baso % (Auto) Lymph # (Auto) [place] # (Auto) Eos # (Auto) Baso # (Auto) Abs Immat Gran (auto) Absolute Neuts (auto) Absolute Nucleated RBC Nucleated RBC % (auto) Neutrophils % (Manual) Band Neutrophils % Lymphocytes % (Manual) Monocytes % (Manual) Eosinophils % (Manual) Abs Neuts (Manual) Lymphocytes # (Manual) Monocytes # (Manual) Eosinophils # (Manual) Toxic Vacuolation Dohle Bodies Platelet Estimate Plt Morphology Comment RBC Morphology Hypochromasia Target Cells Tear Drop Cells Acanthocytes (Spur) Schistocytes Smear Tech's Comments PT INR APTT VBG pH VBG pCO2 VBG pO2 VBG HCO3 VBG O2 Saturation VBG Base Excess Anion Gap Estim Creat Clear Calc Estimated GFR Random Glucose Osmolality Lactic Acid Calcium Magnesium Total Bilirubin AST ALT Alkaline Phosphatase Lactate Dehydrogenase Total Creatine Kinase Troponin I High Sens Total Protein Albumin Urine Color Urine Appearance Urine pH Ur Specific [place] Urine Protein Cancelled Urine Glucose (UA) 100 H Cancelled Urine Ketones 15 Cancelled Urine Blood Large (3+) H Urine Nitrite Ur Leukocyte Esterase Urine RBC Urine WBC Urine WBC Clumps Ur Squamous Epith Cells Ur Transition Epith Cell Ur Renal Epithelial Cell Calcium Oxalate Crystal Leucine Crystals Cystine Crystals Tyrosine Crystals Other Crystals Urine Bacteria Urine Parasites Bilirubin Casts Epithelial Casts Fatty Casts Hyaline Casts Granular Casts Waxy Casts Broad Casts RBC Casts WBC Casts Other Casts Urine Trichomonas Urine Yeast Ur Random Sodium Urine Creatinine Ethyl Alcohol Influenza Type A (PCR) Influenza Type B (PCR) RSV RNA Qual (PCR) SARS-CoV-2 RNA (RT-PCR) 02/07/24 02/07/24 02/07/24 20:05 20:05 20:05 MCV MCH MCHC RDW Plt Count MPV Immature Gran % (Auto) Neut % (Auto) Lymph % (Auto) [place] % (Auto) Eos % (Auto) Baso % (Auto) Lymph # (Auto) [place] # (Auto) Eos # (Auto) Baso # (Auto) Abs Immat Gran (auto) Absolute Neuts (auto) Absolute Nucleated RBC Nucleated RBC % (auto) Neutrophils % (Manual) Band Neutrophils % Lymphocytes % (Manual) Monocytes % (Manual) Eosinophils % (Manual) Abs Neuts (Manual) Lymphocytes # (Manual) Monocytes # (Manual) Eosinophils # (Manual) Toxic Vacuolation Dohle Bodies Platelet Estimate Plt Morphology Comment RBC Morphology Hypochromasia Target Cells Tear Drop Cells Acanthocytes (Spur) Schistocytes Smear Tech's Comments PT INR APTT VBG pH VBG pCO2 VBG pO2 VBG HCO3 VBG O2 Saturation VBG Base Excess Anion Gap Estim Creat Clear Calc Estimated GFR Random Glucose Osmolality Lactic Acid Calcium Magnesium Total Bilirubin AST ALT Alkaline Phosphatase Lactate Dehydrogenase Total Creatine Kinase Troponin I High Sens Total Protein Albumin Urine Color Urine Appearance Urine pH Ur Specific [place] Urine Protein Urine Glucose (UA) Urine Ketones Urine Blood Cancelled Urine Nitrite Positive H Cancelled Ur Leukocyte Esterase Trace H Cancelled Urine RBC >20 H Urine WBC Urine WBC Clumps Ur Squamous Epith Cells Ur Transition Epith Cell Ur Renal Epithelial Cell Calcium Oxalate Crystal Leucine Crystals Cystine Crystals Tyrosine Crystals Other Crystals Urine Bacteria Urine Parasites Bilirubin Casts Epithelial Casts Fatty Casts Hyaline Casts Granular Casts Waxy Casts Broad Casts RBC Casts WBC Casts Other Casts Urine Trichomonas Urine Yeast Ur Random Sodium Urine Creatinine Ethyl Alcohol Influenza Type A (PCR) Influenza Type B (PCR) RSV RNA Qual (PCR) SARS-CoV-2 RNA (RT-PCR) 02/07/24 02/07/24 02/07/24 20:05 20:05 20:05 MCV MCH MCHC RDW Plt Count MPV Immature Gran % (Auto) Neut % (Auto) Lymph % (Auto) [place] % (Auto) Eos % (Auto) Baso % (Auto) Lymph # (Auto) [place] # (Auto) Eos # (Auto) Baso # (Auto) Abs Immat Gran (auto) Absolute Neuts (auto) Absolute Nucleated RBC Nucleated RBC % (auto) Neutrophils % (Manual) Band Neutrophils % Lymphocytes % (Manual) Monocytes % (Manual) Eosinophils % (Manual) Abs Neuts (Manual) Lymphocytes # (Manual) Monocytes # (Manual) Eosinophils # (Manual) Toxic Vacuolation Dohle Bodies Platelet Estimate Plt Morphology Comment RBC Morphology Hypochromasia Target Cells Tear Drop Cells Acanthocytes (Spur) Schistocytes Smear Tech's Comments PT INR APTT VBG pH VBG pCO2 VBG pO2 VBG HCO3 VBG O2 Saturation VBG Base Excess Anion Gap Estim Creat Clear Calc Estimated GFR Random Glucose Osmolality Lactic Acid Calcium Magnesium Total Bilirubin AST ALT Alkaline Phosphatase Lactate Dehydrogenase Total Creatine Kinase Troponin I High Sens Total Protein Albumin Urine Color Urine Appearance Urine pH Ur Specific [place] Urine Protein Urine Glucose (UA) Urine Ketones Urine Blood Urine Nitrite Ur Leukocyte Esterase Urine RBC Cancelled Urine WBC >50 H Cancelled Urine WBC Clumps Cancelled Ur Squamous Epith Cells 0-2 Cancelled Ur Transition Epith Cell Cancelled Ur Renal Epithelial Cell Cancelled Calcium Oxalate Crystal Cancelled Leucine Crystals Cancelled Cystine Crystals Cancelled Tyrosine Crystals Cancelled Other Crystals Cancelled Urine Bacteria 2+ Urine Parasites Bilirubin Casts Epithelial Casts Fatty Casts Hyaline Casts Granular Casts Waxy Casts Broad Casts RBC Casts WBC Casts Other Casts Urine Trichomonas Urine Yeast Ur Random Sodium Urine Creatinine Ethyl Alcohol Influenza Type A (PCR) Influenza Type B (PCR) RSV RNA Qual (PCR) SARS-CoV-2 RNA (RT-PCR) 02/07/24 02/07/24 02/07/24 20:05 20:05 20:09 MCV MCH MCHC RDW Plt Count MPV Immature Gran % (Auto) Neut % (Auto) Lymph % (Auto) [place] % (Auto) Eos % (Auto) Baso % (Auto) Lymph # (Auto) [place] # (Auto) Eos # (Auto) Baso # (Auto) Abs Immat Gran (auto) Absolute Neuts (auto) Absolute Nucleated RBC Nucleated RBC % (auto) Neutrophils % (Manual) Band Neutrophils % Lymphocytes % (Manual) Monocytes % (Manual) Eosinophils % (Manual) Abs Neuts (Manual) Lymphocytes # (Manual) Monocytes # (Manual) Eosinophils # (Manual) Toxic Vacuolation Dohle Bodies Platelet Estimate Plt Morphology Comment RBC Morphology Hypochromasia Target Cells Tear Drop Cells Acanthocytes (Spur) Schistocytes Smear Tech's Comments PT INR APTT VBG pH VBG pCO2 VBG pO2 VBG HCO3 VBG O2 Saturation VBG Base Excess Anion Gap Estim Creat Clear Calc Estimated GFR Random Glucose Osmolality Lactic Acid Calcium Magnesium Total Bilirubin AST ALT Alkaline Phosphatase Lactate Dehydrogenase Total Creatine Kinase Troponin I High Sens Total Protein Albumin Urine Color Urine Appearance Urine pH Ur Specific [place] Urine Protein Urine Glucose (UA) Urine Ketones Urine Blood Urine Nitrite Ur Leukocyte Esterase Urine RBC Urine WBC Urine WBC Clumps Ur Squamous Epith Cells Ur Transition Epith Cell Ur Renal Epithelial Cell Calcium Oxalate Crystal Leucine Crystals Cystine Crystals Tyrosine Crystals Other Crystals Urine Bacteria Cancelled Urine Parasites Cancelled Bilirubin Casts Cancelled Epithelial Casts Cancelled Fatty Casts Cancelled Hyaline Casts 11-20 Cancelled Granular Casts Cancelled Waxy Casts Cancelled Broad Casts Cancelled RBC Casts Cancelled WBC Casts Cancelled Other Casts Cancelled Urine Trichomonas Cancelled Urine Yeast Cancelled Ur Random Sodium 59.0 Urine Creatinine 110.02 Ethyl Alcohol Influenza Type A (PCR) Influenza Type B (PCR) RSV RNA Qual (PCR) SARS-CoV-2 RNA (RT-PCR) 02/08/24 05:39 MCV 88.3 MCH 29.8 MCHC 33.8 RDW 13.8 Plt Count 66 L MPV 11.6 Immature Gran % (Auto) Cancelled Neut % (Auto) Cancelled Lymph % (Auto) Cancelled [place] % (Auto) Cancelled Eos % (Auto) Cancelled Baso % (Auto) Cancelled Lymph # (Auto) Cancelled [place] # (Auto) Cancelled Eos # (Auto) Cancelled Baso # (Auto) Cancelled Abs Immat Gran (auto) Cancelled Absolute Neuts (auto) Cancelled Absolute Nucleated RBC 0.020 H Nucleated RBC % (auto) 0.3 H Neutrophils % (Manual) 78 H Band Neutrophils % 8 H Lymphocytes % (Manual) 1 L Monocytes % (Manual) 12 H Eosinophils % (Manual) 1 Abs Neuts (Manual) 6.7 Lymphocytes # (Manual) 0.1 L Monocytes # (Manual) 0.9 Eosinophils # (Manual) 0.1 Toxic Vacuolation PRESENT Dohle Bodies PRESENT Platelet Estimate DECREASED Plt Morphology Comment NORMAL RBC Morphology NOTED Hypochromasia 1+ (5-14) Target Cells 1+ (5-14) Tear Drop Cells 1+ (0-2) Acanthocytes (Spur) 1+ (0-2) Schistocytes 1+ (0-2) Smear Tech's Comments PT INR APTT VBG pH VBG pCO2 VBG pO2 VBG HCO3 VBG O2 Saturation VBG Base Excess Anion Gap 31 H Estim Creat Clear Calc 5.3 Estimated GFR 4 Random Glucose 160 H Osmolality Lactic Acid Calcium 7.8 L D Magnesium Total Bilirubin 1.8 H AST 101 H ALT 56 H Alkaline Phosphatase 120 H Lactate Dehydrogenase 377 H Total Creatine Kinase Troponin I High Sens Total Protein 5.8 L Albumin 3.1 L Urine Color Urine Appearance Urine pH Ur Specific [place] Urine Protein Urine Glucose (UA) Urine Ketones Urine Blood Urine Nitrite Ur Leukocyte Esterase Urine RBC Urine WBC Urine WBC Clumps Ur Squamous Epith Cells Ur Transition Epith Cell Ur Renal Epithelial Cell Calcium Oxalate Crystal Leucine Crystals Cystine Crystals Tyrosine Crystals Other Crystals Urine Bacteria Urine Parasites Bilirubin Casts Epithelial Casts Fatty Casts Hyaline Casts Granular Casts Waxy Casts Broad Casts RBC Casts WBC Casts Other Casts Urine Trichomonas Urine Yeast Ur Random Sodium Urine Creatinine Ethyl Alcohol Influenza Type A (PCR) Influenza Type B (PCR) RSV RNA Qual (PCR) SARS-CoV-2 RNA (RT-PCR) Assessment and Plan (1) Acute hyponatremia: Status: Acute (2) Thrombocytopenia: Status: Acute (3) Transaminitis: Status: Acute (4) Increased anion gap metabolic acidosis: Status: Acute (5) Acute kidney failure: Status: Acute (6) UTI (urinary tract infection): Status: Acute Plan A 68 years old male with PMH of Alcohol abuse, cervical surgery presents to ED as he was found in his own feces in his home by neighbors weak and altered. 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 monitor Thrombocytopenia likely secondary to alcohol abuse monitor CBC Elevated CK could be contributing to his ARTHUR on IVF follow CK level DVT PPx SCDs The patient will need overnight hospital stay as he is starting dialysis pending improvement in KFT and correction of electrolytes Quality Stroke Does the patient have a stroke diagnosis?: No VTE Prior VTE?: No VTE Risk Level:: Medical - moderate - high VTE Device Contraindication: N/A - Device Ordered VTE Drug Contraindication: Treatment Not Indicated
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
--- NOTE | 2024-02-08 12:09 | PM.PROC ---
Brief Operative Note Date of procedure: 02/08/24 Pre-op diagnosis: Concern for ttp, needs access for HD Post-op diagnosis: same Procedure: Procedure deemed medically necessary by hospitalist service. Unable to find next of kin for consent. Right IJ 20 cm Ahmet placed using US and Fluoro. Tip at cavoatrial junction. Ok for use. Anesthesia: local
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
[2024-02-08 17:56] LABS: Anion Gap 23 (12-20); Blood Urea Nitrogen 98 mg/dL (9-16); Carbon Dioxide 16 mmol/L (22-29); Chloride 95 mmol/L (96-108); Creatinine Clr Calc Pharmacy 8.3; Estimated Glomerular Filt Rate 6; Glucose Random 125 mg/dL (60-115); Potassium 4.2 mmol/L (3.3-5.1); Sodium 130 mmol/L (135-145)
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
[2024-02-09 03:22] VITALS: BP 150/85; PULSE 111; RESP 20; TEMP 36.6; O2SAT 99
[2024-02-09 06:22] LABS: Anion Gap 25 (12-20); Blood Urea Nitrogen 113 mg/dL (9-16); Carbon Dioxide 15 mmol/L (22-29); Chloride 95 mmol/L (96-108); Creatinine Clr Calc Pharmacy 7.5; Estimated Glomerular Filt Rate 6; Glucose Random 145 mg/dL (60-115); Potassium 4.6 mmol/L (3.3-5.1); Sodium 130 mmol/L (135-145)
[2024-02-09 06:28] LABS: Hematocrit 27.6 % (42.0-52.0); Hemoglobin 10.5 g/dl (14.0-18.0); Mean Corpuscular Hemoglobin 34.2 pg (27.0-33.0); Mean Corpuscular Volume 89.9 fL (80.0-98.0); Mean Platelet Volume 12.9 fL (9.4-12.4); Red Blood Count 3.07 X10*6/uL (4.60-5.80); Red Cell Distribution Width 14.6 % (11.0-16.0)
[2024-02-09 06:29] LABS: Platelet Count 71 X10*3/uL (160-400)
[2024-02-09 07:38] VITALS: BP 141/78; PULSE 120; RESP 20; TEMP 36.1; O2SAT 99
[2024-02-09 08:25] LABS: Alanine Aminotransferase 51 U/L (0-40); Alkaline Phosphatase 128 U/L (39-117); Aspartate Amino Transferase 111 U/L (5-37); Bilirubin Direct 1.1 mg/dL (0.0-0.5); Bilirubin Total 1.6 mg/dL (0.0-1.0); Total Protein 5.8 g/dL (6.5-8.0)
[2024-02-09 09:15] LABS: HBsAGNum1 0.24 S/CO (0.00-0.99); Hepatitis B Core Antibody Nonreactive (Nonreactive); Hepatitis B Surface Antigen Negative (Negative); ~Hepatitis B Surface Antibody NONREACTIVE (Nonreactive)
[2024-02-09] MEDS: PHENobarbitaL 15 MG TABLET 45 MG PO ×2 (09:34→21:30)
[2024-02-09] MEDS: Sodium Bicarbonate 650 MG TABLET 1300 MG PO ×2 (09:34→21:30)
[2024-02-09] MEDS: cefTRIAXone sodium 1 GM in 0.9 % Sodium Chloride 50 ML IV (09:35)
[2024-02-09] MEDS: 0.9 % Sodium Chloride Flush 3 ML SYRINGE IVFLUSH ×2 (09:35→22:55)
--- NOTE | 2024-02-09 11:10 | MHC.CM.PN ---
Addendum entered by Elena Tse 02/09/24 12:37: A call was received from Ellie PetersCustomer Account Manager @ [facility]. An update was provided. Discharge plans are pending a PT eval and Addiction medicine consult. Both will happen once the patient is medically cleared. Original Note: An update was provided to Pts son, Master. Contact#s for patients room phones provided. Contact info for Jeanie Grijalva from protective services was also provided to Master. Patient continues on Phenobarbital protocol. A PT eval and Addiction medicine consult have been ordered. DP TBD by PT brionna. Home with services vs ETOH rehab vs STR via BLS.
[2024-02-09 11:27] VITALS: BP 150/89; PULSE 122; RESP 20; TEMP 36.2; O2SAT 97
--- NOTE | 2024-02-09 14:34 | P.PNNPD_ITS ---
Subjective Subjective Date of Service: 02/09/24 This patient was seen during dialysis. Interval history: Seen and evaluated this morning CBC showing schistocytes more altered and confused no other overnight events Na dropped to 125 Physical Exam Vital Signs: Vital Signs: Last Vital Signs Temp 97.1 F 02/09/24 11:27 Pulse 122 H 02/09/24 11:27 Resp 20 02/09/24 11:27 BP 150/89 H 02/09/24 11:27 Pulse Ox 97 02/09/24 11:27 O2 Del Method Room Air 02/09/24 11:27 BMI result Body Mass Index 23.2 Const: General: ill appearing Neck: Neck: Yes supple Resp: Auscultation: clear to auscultation bilaterally Cardio: Palpation: no palpable S3 Heart sounds: no rubs GI: Palpation (GI): Soft to palpation Auscultation: normal bowel sounds Neuro: Motor exam (neuro): Tremors during motor activity present Assessment & Plan Assessment and plan (1) Acute kidney failure: Status: Acute (2) Increased anion gap metabolic acidosis: Status: Acute (3) Thrombocytopenia: Status: Acute (4) Acute hyponatremia: Status: Acute Plan 68-year-old man with severe acute kidney injury in setting of alcohol use. He currently has anemia with thrombocytopenia which remains unexplained. Has metabolic acidosis with hyponatremia. Clinically appears uremic. HD today In the meantime he needs workup for ARTHUR. Given the history of anemia and thr ombocytopenia HUS/TTP Hematology consultation Continue IV hydration with sodium bicarbonate. Monitor urine output. Time Spent With Patient Time: Total time managing care of this patient today ____ minutes. Procedures Date of Service Date of Service: 02/09/24
--- NOTE | 2024-02-09 15:08 | HO.PM.IMPN ---
Subjective Subjective Date of Service: 02/09/24 Interval History: Seen and evaluated this morning less but remains altered and confused tolerated HD sessions Na dropped to 130 Plan for HD today Review of Systems Review of Systems: Yes all other systems are reviewed and are negative Physical Exam Vital Signs: Vital Signs: Last Vital Signs Temp 97.1 F 02/09/24 11:27 Pulse 122 H 02/09/24 11:27 Resp 20 02/09/24 11:27 BP 150/89 H 02/09/24 11:27 Pulse Ox 97 02/09/24 11:27 O2 Del Method Room Air 02/09/24 11:27 BMI result Body Mass Index 23.2 Const: Other: Constitutional : Awake with stimulation, interactive, looks weak and frail Neck : Normal inspection, Supple Cardiovascular : RRR, no JVP, no lower extremity edema Respiratory : good bilateral air entry, no crackles, wheezes or rhonchi Gastrointestinal: soft, lax, Normal bowel sounds, Non tender Skin : Warm, Dry, dialysis cath in place Neurological : Alert & disoriented and hypoactive, No focal deficit Objective Data Active Medications Acetaminophen (Acetaminophen 325 Mg Tablet) 650 mg PO Q6H PRN PRN Reason: Pain, Mild (Pain Scale 1-3), fever or headache Calcium Carbonate (Calcium Carbonate 750 Mg Tab.Chew) 750 mg PO Q4H PRN PRN Reason: Heartburn Ceftriaxone Sodium 1 gm/ (Sodium Chloride) 50 mls @ 100 mls/hr IV Q24H [facility] Last Infusion: 02/09/24 10:26 Dose: Infused Documented By: EMELI Magnesium Hydroxide (Milk Of Magnesia 30 Ml Oral.Susp) 30 ml PO DAILY PRN PRN Reason: Constipation Melatonin (Melatonin 3 Mg Tablet) 6 mg PO BEDTIME PRN PRN Reason: Insomnia Ondansetron HCl (Ondansetron Hcl 4 Mg/2 Ml Vial) 4 mg IVPUSH Q4H PRN PRN Reason: Nausea and Vomiting Pharmacy Consult (Consult Rx Etoh Phenob Im/Po) 1 each MISCELLANE ONCE PRN; Protocol PRN Reason: Consult order Phenobarbital (Phenobarbital 15 Mg Tablet) 45 mg PO BID [facility]; Protocol Stop: 02/09/24 21:01 Last Admin: 02/09/24 09:34 Dose: 45 mg Documented By: EMELI Phenobarbital (Phenobarbital 30 Mg Tablet) 30 mg PO BID [facility]; Protocol Stop: 02/11/24 21:01 Phenobarbital (Phenobarbital 30 Mg Tablet) 30 mg PO DAILY [facility]; Protocol Stop: 02/13/24 09:01 Sodium Bicarbonate (Sodium Bicarbonate 650 Mg Tablet) 1,300 mg PO TID [facility] Last Admin: 02/09/24 14:47 Dose: Not Given Documented By: EMELI Non-Admin Reason: Off unit: Dialysis Sodium Chloride (0.9 % Sodium Chloride Flush 3 Ml Syringe) 3 ml IVFLUSH QSHIFT [facility] Last Admin: 02/09/24 09:35 Dose: 3 ml Documented By: EMELI Labs 02/09/24 05:25 02/09/24 05:25 Labs: Laboratory Results - last 24 hr 02/08/24 02/08/24 02/09/24 14:08 16:34 05:25 MCV 89.9 MCH 34.2 H MCHC 38.0 H RDW 14.6 Plt Count 71 L MPV 12.9 H Absolute Nucleated RBC 0.000 Nucleated RBC % (auto) 0.0 Anion Gap 23 H 25 H Estim Creat Clear Calc 8.3 7.5 Estimated GFR 6 6 Random Glucose 125 H 145 H Calcium 8.0 L 8.0 L Total Bilirubin 1.6 H Direct Bilirubin 1.1 H AST 111 H ALT 51 H Alkaline Phosphatase 128 H Total Protein 5.8 L Albumin 3.0 L Hep Bs Antigen Negative Hep Bs Antibody NONREACTIVE Hep B Core Total Ab Nonreactive Microbiology Microbiology Results: Microbiology 02/07/24 Unknown Urine Culture - Preliminary Urine clean catch - Clean Catch Midstream Gram negative shikha Assessment and Plan (1) UTI (urinary tract infection): Status: Acute (2) Acute hyponatremia: Status: Acute (3) Thrombocytopenia: Status: Acute (4) Transaminitis: Status: Acute (5) Acute kidney failure: Status: Acute Plan A 68 years old male with PMH of Alcohol abuse, cervical surgery presents to ED as he was found in his own feces in his home by neighbors weak and altered. Acute renal failure with anion-gap metabolic acidosis likely secondary to TTP Cr 9.[address] negative for obstruction keep on IV fluids Nephrology consult , continue dialysis follow BMP follow I\O check ADAMTs 13 elevated LDH, pending Haptoglobin Acute hyponatremia worsened to 130 restart IVF and correct with dialysis possible SIADH from alcoholism specially with elevated Na UTI pending cultures continue Ceftriaxone Transaminitis likely related to alcohol abuse and TTP ? monitor Thrombocytopenia likely secondary to alcohol abuse and TTP ? Hematology consult monitor CBC Elevated CK could be contributing to his ARTHUR on IVF follow CK level DVT PPx SCDs The patient will need overnight hospital stay as he is starting dialysis pending improvement in KFT and correction of electrolytes Quality Stroke Does the patient have a stroke diagnosis?: No VTE Prior VTE?: No VTE Risk Level:: Medical - moderate - high VTE Device Contraindication: N/A - Device Ordered VTE Drug Contraindication: Treatment Not Indicated
[2024-02-09] MEDS: 0.9 % Sodium Chloride 1,000 ML 100 ML IVCONT (15:51)
[2024-02-09 16:00] VITALS: BP 150/70; PULSE 80; RESP 17; TEMP 36.6; O2SAT 95
[2024-02-09] MEDS: Metoclopramide HCl 10 MG/2 ML VIAL 5 MG IVPUSH (16:17)
[2024-02-09 16:22] LABS: Glucose, Whole Blood 151 mg/dL (60-115)
[2024-02-09 20:00] VITALS: BP 151/67; PULSE 120; RESP 18; TEMP 35.9; O2SAT 99
[2024-02-09 23:47] VITALS: BP 157/86; PULSE 109; RESP 18; TEMP 36.3; O2SAT 98
[2024-02-10] VITALS (9 sets, daily range): BP systolic 110–172; BP diastolic 57–88; PULSE 103–126; RESP 18–20; TEMP 36.4–37.2; O2SAT 98–99
[2024-02-10] MEDS: 0.9 % Sodium Chloride 1,000 ML 100 ML IVCONT ×3 (00:54→16:43)
[2024-02-10 07:34] LABS: Hematocrit 23.1 % (42.0-52.0); Mean Corpuscular Volume 89.9 fL (80.0-98.0); Mean Platelet Volume 12.5 fL (9.4-12.4); Red Blood Count 2.57 X10*6/uL (4.60-5.80); Red Cell Distribution Width 15.1 % (11.0-16.0); White Blood Count 14.5 X10*3/uL (4.8-10.8)
[2024-02-10 07:48] LABS: Glucose, Whole Blood 115 mg/dL (60-115)
[2024-02-10 07:49] LABS: Anion Gap 19 (12-20); Blood Urea Nitrogen 79 mg/dL (9-16); Calcium 8.1 mg/dL (8.4-10.2); Carbon Dioxide 16 mmol/L (22-29); Chloride 101 mmol/L (96-108); Creatinine Clr Calc Pharmacy 10.6; Estimated Glomerular Filt Rate 8; Glucose Random 125 mg/dL (60-115); Potassium 4.2 mmol/L (3.3-5.1); Sodium 132 mmol/L (135-145)
[2024-02-10 08:02] LABS: Hemoglobin 7.8 g/dl (14.0-18.0); Mean Corpuscular HGB Conc 33.8 g/dl (31.0-36.0); Mean Corpuscular Hemoglobin 30.4 pg (27.0-33.0); Platelet Count 76 X10*3/uL (160-400)
[2024-02-10 08:23] LABS: Immature Retic Fraction 30.8 % (2.3-13.4); Retic HGB Equivalent 31.7 pg (30.0-35.0); Reticulocyte Percent 0.5 % (0.5-1.8); Reticulocytes Absolute 0.012 X10*6/uL (0.026-0.095)
[2024-02-10] MEDS: cefTRIAXone sodium 1 GM in 0.9 % Sodium Chloride 50 ML IV (09:54)
[2024-02-10] MEDS: Sodium Bicarbonate 650 MG TABLET 1300 MG PO ×3 (09:55→21:04)
[2024-02-10] MEDS: PHENobarbitaL 30 MG TABLET PO ×2 (09:55→21:03)
[2024-02-10] MEDS: 0.9 % Sodium Chloride Flush 3 ML SYRINGE IVFLUSH ×2 (10:02→16:46)
[2024-02-10 12:22] LABS: Hematocrit 25.2 % (42.0-52.0); Mean Corpuscular Volume 90.6 fL (80.0-98.0); Mean Platelet Volume 12.2 fL (9.4-12.4); Red Blood Count 2.78 X10*6/uL (4.60-5.80); Red Cell Distribution Width 15.5 % (11.0-16.0); White Blood Count 15.6 X10*3/uL (4.8-10.8)
[2024-02-10 12:29] LABS: Hemoglobin 8.5 g/dl (14.0-18.0); Mean Corpuscular HGB Conc 33.7 g/dl (31.0-36.0); Mean Corpuscular Hemoglobin 30.6 pg (27.0-33.0); Platelet Count 89 X10*3/uL (160-400)
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
--- NOTE | 2024-02-10 13:18 | HO.PM.IMPN ---
Subjective Subjective Date of Service: 02/10/24 Interval History: Seen and evaluated this morning less but remains altered and confused tolerated HD sessions Na improved to 132 Plan for HD by nephrology team Review of Systems Review of Systems: Yes all other systems are reviewed and are negative Physical Exam Vital Signs: Vital Signs: Last Vital Signs Temp 97.7 F 02/10/24 10:54 Pulse 116 H 02/10/24 12:03 Resp 18 02/10/24 10:54 BP 172/84 H 02/10/24 12:03 Pulse Ox 99 02/10/24 12:03 O2 Del Method Room Air 02/10/24 10:54 BMI result Body Mass Index 23.2 Const: Other: Constitutional : Awake, interactive, looks weak and frail Neck : Normal inspection, Supple Cardiovascular : RRR, no JVP, no lower extremity edema Respiratory : good bilateral air entry, no crackles, wheezes or rhonchi Gastrointestinal: soft, lax, Normal bowel sounds, Non tender Skin : Warm, Dry, dialysis cath in place Neurological : Alert & disoriented and hypoactive, No focal deficit Objective Data Active Medications Acetaminophen (Acetaminophen 325 Mg Tablet) 650 mg PO Q6H PRN PRN Reason: Pain, Mild (Pain Scale 1-3), fever or headache Calcium Carbonate (Calcium Carbonate 750 Mg Tab.Chew) 750 mg PO Q4H PRN PRN Reason: Heartburn Ceftriaxone Sodium 1 gm/ (Sodium Chloride) 50 mls @ 100 mls/hr IV Q24H [facility] Last Infusion: 02/10/24 10:26 Dose: Infused Documented By: DEEPA Sodium Chloride (Ns) 1,000 mls @ 100 mls/hr IVCONT .Q10H [facility] Last Admin: 02/10/24 09:55 Dose: 100 mls/hr Documented By: DEEPA Magnesium Hydroxide (Milk Of Magnesia 30 Ml Oral.Susp) 30 ml PO DAILY PRN PRN Reason: Constipation Melatonin (Melatonin 3 Mg Tablet) 6 mg PO BEDTIME PRN PRN Reason: Insomnia Metoclopramide HCl (Metoclopramide Hcl 10 Mg/2 Ml Vial) 5 mg IVPUSH Q6H PRN PRN Reason: Hiccups Ondansetron HCl (Ondansetron Hcl 4 Mg/2 Ml Vial) 4 mg IVPUSH Q4H PRN PRN Reason: Nausea and Vomiting Pharmacy Consult (Consult Rx Etoh Phenob Im/Po) 1 each MISCELLANE ONCE PRN; Protocol PRN Reason: Consult order Phenobarbital (Phenobarbital 30 Mg Tablet) 30 mg PO BID [facility]; Protocol Stop: 02/11/24 21:01 Last Admin: 02/10/24 09:55 Dose: 30 mg Documented By: DEEPA Phenobarbital (Phenobarbital 30 Mg Tablet) 30 mg PO DAILY [facility]; Protocol Stop: 02/13/24 09:01 Sodium Bicarbonate (Sodium Bicarbonate 650 Mg Tablet) 1,300 mg PO TID [facility] Last Admin: 02/10/24 09:55 Dose: 1,300 mg Documented By: DEEPA Sodium Chloride (0.9 % Sodium Chloride Flush 3 Ml Syringe) 3 ml IVFLUSH QSHIFT [facility] Last Admin: 02/10/24 10:02 Dose: 3 ml Documented By: DEEPA Labs 02/10/24 12:04 02/10/24 06:17 Labs: Laboratory Results - last 24 hr 02/09/24 02/10/24 02/10/24 16:15 06:17 07:44 MCV 89.9 MCH 30.4 MCHC 33.8 RDW 15.1 Plt Count 76 L MPV 12.5 H Absolute Nucleated RBC 0.000 Nucleated RBC % (auto) 0.0 Absolute Retic 0.012 L Percent Retic 0.5 Immature Retic Fraction 30.8 H Retic Hgb Equivalent 31.7 Anion Gap 19 Estim Creat Clear Calc 10.6 Estimated GFR 8 POC Glucose 151 H 115 Random Glucose 125 H Calcium 8.1 L 02/10/24 12:04 MCV 90.6 MCH 30.6 MCHC 33.7 RDW 15.5 Plt Count 89 L MPV 12.2 Absolute Nucleated RBC 0.000 Nucleated RBC % (auto) 0.0 Absolute Retic Percent Retic Immature Retic Fraction Retic Hgb Equivalent Anion Gap Estim Creat Clear Calc Estimated GFR POC Glucose Random Glucose Calcium Microbiology Microbiology Results: Microbiology 02/07/24 Unknown Urine Culture - Final Urine clean catch - Clean Catch Midstream Escherichia coli Assessment and Plan (1) UTI (urinary tract infection): Status: Acute (2) Acute hyponatremia: Status: Acute (3) Thrombocytopenia: Status: Acute (4) Transaminitis: Status: Acute (5) Acute kidney failure: Status: Acute (6) Increased anion gap metabolic acidosis: Status: Acute Plan A 68 years old male with PMH of Alcohol abuse, cervical surgery presents to ED as he was found in his own feces in his home by neighbors weak and altered. Acute renal failure with anion-gap metabolic acidosis likely secondary to TTP Cr 6.[address] negative for obstruction keep on IV fluids Nephrology consult , continue dialysis follow BMP follow I\O pending ADAMTs 13 elevated LDH, pending Haptoglobin Acute hyponatremia worsened to 130 restart IVF and correct with dialysis possible SIADH from alcoholism specially with elevated Na UTI w E.Coli continue Ceftriaxone Transaminitis likely related to alcohol abuse and TTP monitor Thrombocytopenia likely secondary to alcohol abuse and TTP Hematology consult monitor CBC Elevated CK on IVF follow CK level DVT PPx SCDs The patient will need overnight hospital stay as he is starting dialysis pending improvement in KFT and correction of electrolytes Quality Stroke Does the patient have a stroke diagnosis?: No VTE Prior VTE?: No VTE Risk Level:: Medical - moderate - high VTE Device Contraindication: N/A - Device Ordered VTE Drug Contraindication: Treatment Not Indicated
[2024-02-10] MEDS: Labetalol HCL 100 MG TABLET PO ×2 (16:39→21:03)
[2024-02-10 20:02] LABS: CDiff Gene PCR POSITIVE (Negative)
[2024-02-10 20:55] LABS: CDIFF Internal ctrl Dots and bkg OK (V); CDiff Toxin Negative (Negative)
[2024-02-11] VITALS (7 sets, daily range): BP systolic 115–167; BP diastolic 56–85; PULSE 87–100; RESP 14–20; TEMP 36.1–36.9; O2SAT 96–97
[2024-02-11] MEDS: 0.9 % Sodium Chloride 1,000 ML 100 ML IVCONT ×2 (00:51→08:02)
[2024-02-11 07:04] LABS: Hematocrit 21.7 % (42.0-52.0); Mean Corpuscular Volume 91.2 fL (80.0-98.0); PLT CLUMP 1; Red Blood Count 2.38 X10*6/uL (4.60-5.80); Red Cell Distribution Width 15.6 % (11.0-16.0)
[2024-02-11 07:05] LABS: Hemoglobin 8.1 g/dl (14.0-18.0); Mean Corpuscular HGB Conc 37.3 g/dl (31.0-36.0); Mean Platelet Volume 12.3 fL (9.4-12.4)
[2024-02-11 07:10] LABS: Platelet Count 93 X10*3/uL (160-400); White Blood Count 14.4 X10*3/uL (4.8-10.8)
[2024-02-11 07:28] LABS: Anion Gap 15 (12-20); Blood Urea Nitrogen 54 mg/dL (9-16); Calcium 7.9 mg/dL (8.4-10.2); Carbon Dioxide 18 mmol/L (22-29); Chloride 105 mmol/L (96-108); Creatinine Clr Calc Pharmacy 14.8; Estimated Glomerular Filt Rate 12; Glucose Random 130 mg/dL (60-115); Iron 25 mcg/dL (45-160); Percent Iron Saturation 23 % (15-50); Potassium 3.6 mmol/L (3.3-5.1); Sodium 134 mmol/L (135-145); Total Iron Binding Capacity 110 mcg/dL (228-428); Unsaturated Iron Binding 85 ug/dL
[2024-02-11] MEDS: PHENobarbitaL 30 MG TABLET PO ×2 (08:01→20:00)
[2024-02-11] MEDS: cefTRIAXone sodium 1 GM in 0.9 % Sodium Chloride 50 ML IV (08:01)
[2024-02-11] MEDS: Ferrous Sulfate 324 MG TABLET.DR PO ×2 (08:01→16:31)
[2024-02-11] MEDS: vancomycin HCL 125 MG CAPSULE PO ×3 (08:01→20:00)
[2024-02-11] MEDS: Labetalol HCL 100 MG TABLET PO ×2 (08:01→20:00)
[2024-02-11] MEDS: Sodium Bicarbonate 650 MG TABLET 1300 MG PO ×3 (08:01→19:59)
[2024-02-11] MEDS: 0.9 % Sodium Chloride Flush 3 ML SYRINGE IVFLUSH ×3 (08:02→20:00)
--- NOTE | 2024-02-11 09:57 | P.PNIM_ITS ---
Subjective Subjective Date of Service: 02/11/24 Interval History: Seen and evaluated this morning less but remains altered and confused tolerated HD sessions Cr improved to 4.7 Na improved to 134 Plan for HD by nephrology team Review of Systems No fever, chills but has weakness No chest pain, palpitation No shortness of breath or coughing No abdominal pain, nausea or vomiting No urinary symptoms Physical Exam 2 Vital Signs: Vital Signs: Last Vital Signs Temp 97.0 F 02/11/24 08:00 Pulse 88 02/11/24 08:00 Resp 18 02/11/24 08:00 BP 154/76 H 02/11/24 08:00 Pulse Ox 97 02/11/24 08:00 O2 Del Method Room Air 02/11/24 08:00 BMI result Body Mass Index 23.2 Const: Other: Constitutional : Awake, interactive, looks better and stronger Neck : Normal inspection, Supple Cardiovascular : RRR, no JVP, no lower extremity edema Respiratory : good bilateral air entry, no crackles, wheezes or rhonchi Gastrointestinal: soft, lax, Normal bowel sounds, Non tender Skin : Warm, Dry, dialysis cath in place Neurological : Alert & oriented, No focal deficit Objective Data Active Medications Acetaminophen (Acetaminophen 325 Mg Tablet) 650 mg PO Q6H PRN PRN Reason: Pain, Mild (Pain Scale 1-3), fever or headache Calcium Carbonate (Calcium Carbonate 750 Mg Tab.Chew) 750 mg PO Q4H PRN PRN Reason: Heartburn Ferrous Sulfate (Ferrous Sulfate 324 Mg Tablet.) 324 mg PO BIDWM [facility] Last Admin: 02/11/24 08:01 Dose: 324 mg Documented By: DEEPA Ceftriaxone Sodium 1 gm/ (Sodium Chloride) 50 mls @ 100 mls/hr IV Q24H [facility] Last Infusion: 02/11/24 08:41 Dose: Infused Documented By: DEEPA Sodium Chloride (Ns) 1,000 mls @ 100 mls/hr IVCONT .Q10H [facility] Last Admin: 02/11/24 08:02 Dose: 100 mls/hr Documented By: DEEPA Labetalol HCl (Labetalol Hcl 100 Mg Tablet) 100 mg PO BID [facility]; Protocol Last Admin: 02/11/24 08:01 Dose: 100 mg Documented By: DEEPA Magnesium Hydroxide (Milk Of Magnesia 30 Ml Oral.Susp) 30 ml PO DAILY PRN PRN Reason: Constipation Melatonin (Melatonin 3 Mg Tablet) 6 mg PO BEDTIME PRN PRN Reason: Insomnia Metoclopramide HCl (Metoclopramide Hcl 10 Mg/2 Ml Vial) 5 mg IVPUSH Q6H PRN PRN Reason: Hiccups Ondansetron HCl (Ondansetron Hcl 4 Mg/2 Ml Vial) 4 mg IVPUSH Q4H PRN PRN Reason: Nausea and Vomiting Pharmacy Consult (Consult Rx Etoh Phenob Im/Po) 1 each MISCELLANE ONCE PRN; Protocol PRN Reason: Consult order Phenobarbital (Phenobarbital 30 Mg Tablet) 30 mg PO BID [facility]; Protocol Stop: 02/11/24 21:01 Last Admin: 02/11/24 08:01 Dose: 30 mg Documented By: DEEPA Phenobarbital (Phenobarbital 30 Mg Tablet) 30 mg PO DAILY [facility]; Protocol Stop: 02/13/24 09:01 Sodium Bicarbonate (Sodium Bicarbonate 650 Mg Tablet) 1,300 mg PO TID [facility] Last Admin: 02/11/24 08:01 Dose: 1,300 mg Documented By: DEEPA Sodium Chloride (0.9 % Sodium Chloride Flush 3 Ml Syringe) 3 ml IVFLUSH QSHIFT [facility] Last Admin: 02/11/24 08:02 Dose: 3 ml Documented By: DEEPA Vancomycin HCl (Vancomycin Hcl 125 Mg Capsule) 125 mg PO Q6H [facility] Last Admin: 02/11/24 08:01 Dose: 125 mg Documented By: DEEPA Labs 02/11/24 06:14 02/11/24 06:14 Labs: Laboratory Results - last 24 hr 02/10/24 02/10/24 02/11/24 12:04 18:57 06:14 MCV 90.6 91.2 MCH 30.6 34.0 H MCHC 33.7 37.3 H RDW 15.5 15.6 Plt Count 89 L 93 L MPV 12.2 12.3 Absolute Nucleated RBC 0.000 0.000 Nucleated RBC % (auto) 0.0 0.0 Anion Gap 15 Estim Creat Clear Calc 14.8 Estimated GFR 12 Random Glucose 130 H Calcium 7.9 L Iron 25 L TIBC 110 L % Saturation 23 Unsat Iron Binding 85 C. difficile Tox B Gene POSITIVE A* C. difficile Toxin A&B Negative C. difficile Interpret SEE NOTE Microbiology Microbiology Results: Microbiology 02/07/24 Unknown Urine Culture - Final Urine clean catch - Clean Catch Midstream Escherichia coli Assessment and Plan (1) C. difficile diarrhea: Status: Acute (2) UTI (urinary tract infection): Status: Acute (3) Acute hyponatremia: Status: Acute (4) Thrombocytopenia: Status: Acute (5) Transaminitis: Status: Acute (6) Increased anion gap metabolic acidosis: Status: Acute (7) Acute kidney failure: Status: Acute Plan A 68 years old male with PMH of Alcohol abuse, cervical surgery presents to ED as he was found in his own feces in his home by neighbors weak and altered. Acute renal failure with anion-gap metabolic acidosis and uremia likely secondary to TTP Cr 4.7 with no uremic symptoms CT negative for obstruction keep on IV fluids Nephrology consult , continue dialysis as needed Hematology following follow BMP follow I\O pending ADAMTs 13 elevated LDH, pending Haptoglobin Acute hyponatremia improved 134 IVF and correct with dialysis possible SIADH from alcoholism specially with elevated U.Na UTI w E.Coli continue Ceftriaxone to finish 1 week C.Diff infection Less diarrhea overnight, tested positive for antigen start Vancomycin PO Transaminitis mildly improved likely related to alcohol abuse and TTP monitor Thrombocytopenia likely secondary to alcohol abuse and TTP Hematology consult monitor CBC Elevated CK on IVF follow CK level DVT PPx SCDs The patient will need overnight hospital stay form onitoring KFT while on IVF and dialysis pending improvement in KFT and thrombocytopenia Quality Stroke Does the patient have a stroke diagnosis?: No VTE Prior VTE?: No VTE Risk Level:: Medical - moderate - high VTE Device Contraindication: N/A - Device Ordered VTE Drug Contraindication: Treatment Not Indicated
[2024-02-12] MEDS: vancomycin HCL 125 MG CAPSULE PO ×4 (01:59→21:17)
[2024-02-12 03:18] VITALS: BP 142/71; PULSE 92; RESP 20; TEMP 36.4; O2SAT 97
[2024-02-12 06:26] LABS: Mean Corpuscular HGB Conc 36.4 g/dl (31.0-36.0); Mean Corpuscular Hemoglobin 33.5 pg (27.0-33.0); Mean Corpuscular Volume 92.1 fL (80.0-98.0); Mean Platelet Volume 11.8 fL (9.4-12.4); Platelet Count 129 X10*3/uL (160-400); Red Blood Count 2.39 X10*6/uL (4.60-5.80); Red Cell Distribution Width 15.7 % (11.0-16.0); White Blood Count 15.6 X10*3/uL (4.8-10.8)
[2024-02-12 06:49] LABS: Anion Gap 16 (12-20); Blood Urea Nitrogen 62 mg/dL (9-16); Carbon Dioxide 17 mmol/L (22-29); Chloride 106 mmol/L (96-108); Creatinine Clr Calc Pharmacy 12.8; Estimated Glomerular Filt Rate 10; Glucose Random 129 mg/dL (60-115); Potassium 3.6 mmol/L (3.3-5.1); Sodium 135 mmol/L (135-145)
[2024-02-12 07:51] VITALS: BP 151/77; PULSE 86; RESP 18; TEMP 37.1; O2SAT 98
[2024-02-12 08:49] VITALS: BP 151/77; PULSE 86
[2024-02-12] MEDS: PHENobarbitaL 30 MG TABLET PO (08:49)
[2024-02-12] MEDS: Ferrous Sulfate 324 MG TABLET.DR PO (08:49)
[2024-02-12] MEDS: Sodium Bicarbonate 650 MG TABLET 1300 MG PO ×3 (08:49→21:17)
[2024-02-12] MEDS: Labetalol HCL 100 MG TABLET PO ×2 (08:49→21:17)
[2024-02-12] MEDS: cefTRIAXone sodium 1 GM in 0.9 % Sodium Chloride 50 ML IV (09:44)
[2024-02-12] MEDS: Iron Sucrose Complex 200 MG in 0.9 % Sodium Chloride 100 ML 440 MG IV (10:17)
[2024-02-12 10:22] LABS: Complement C3 122 mg/dL (82-185)
--- NOTE | 2024-02-12 11:09 | MHC.CM.PN ---
Per ROUNDS discussion, Patient is not yet medically cleared for dc(new HD/? permanent); PT is recommending rehab and CM will follow.
--- NOTE | 2024-02-12 11:58 | P.PNIM_ITS ---
Subjective Subjective Date of Service: 02/12/24 Interval History: Seen and evaluated this morning more alert and interactive Cr up to 6 , Hb at 8 PLT improved to 129 Plan for HD by nephrology team Review of Systems Review of Systems: Yes all other systems are reviewed and are negative Physical Exam 2 Vital Signs: Vital Signs: Last Vital Signs Temp 98.8 F 02/12/24 07:51 Pulse 86 02/12/24 08:49 Resp 18 02/12/24 07:51 BP 151/77 H 02/12/24 08:49 Pulse Ox 98 02/12/24 07:51 O2 Del Method Room Air 02/12/24 07:51 BMI result Body Mass Index 23.2 Const: Other: Constitutional : Awake, interactive, looks frail but little stronger today Neck : Normal inspection, Supple Cardiovascular : RRR, no JVP, no lower extremity edema Respiratory : good bilateral air entry, no crackles, wheezes or rhonchi Gastrointestinal: soft, lax, Normal bowel sounds, Non tender Skin : Warm, Dry, dialysis cath in place Neurological : Alert & oriented to self and place only, No focal deficit Objective Data Active Medications Acetaminophen (Acetaminophen 325 Mg Tablet) 650 mg PO Q6H PRN PRN Reason: Pain, Mild (Pain Scale 1-3), fever or headache Calcium Carbonate (Calcium Carbonate 750 Mg Tab.Chew) 750 mg PO Q4H PRN PRN Reason: Heartburn Ferrous Sulfate (Ferrous Sulfate 324 Mg Tablet.Dr) 324 mg PO BIDWM [facility] Last Admin: 02/12/24 08:49 Dose: 324 mg Documented By: CONOR Ceftriaxone Sodium 1 gm/ (Sodium Chloride) 50 mls @ 100 mls/hr IV Q24H [facility] Last Infusion: 02/12/24 10:16 Dose: Infused Documented By: CONOR Iron Sucrose 200 mg/ Sodium (Chloride) 110 mls @ 440 mls/hr IV DAILY [facility] Stop: 02/14/24 09:14 Last Infusion: 02/12/24 11:29 Dose: Infused Documented By: CONOR Labetalol HCl (Labetalol Hcl 100 Mg Tablet) 100 mg PO BID [facility]; Protocol Last Admin: 02/12/24 08:49 Dose: 100 mg Documented By: CONOR Magnesium Hydroxide (Milk Of Magnesia 30 Ml Oral.Susp) 30 ml PO DAILY PRN PRN Reason: Constipation Melatonin (Melatonin 3 Mg Tablet) 6 mg PO BEDTIME PRN PRN Reason: Insomnia Metoclopramide HCl (Metoclopramide Hcl 10 Mg/2 Ml Vial) 5 mg IVPUSH Q6H PRN PRN Reason: Hiccups Ondansetron HCl (Ondansetron Hcl 4 Mg/2 Ml Vial) 4 mg IVPUSH Q4H PRN PRN Reason: Nausea and Vomiting Pharmacy Consult (Consult Rx Etoh Phenob Im/Po) 1 each MISCELLANE ONCE PRN; Protocol PRN Reason: Consult order Phenobarbital (Phenobarbital 30 Mg Tablet) 30 mg PO DAILY [facility]; Protocol Stop: 02/13/24 09:01 Last Admin: 02/12/24 08:49 Dose: 30 mg Documented By: CONOR Sodium Bicarbonate (Sodium Bicarbonate 650 Mg Tablet) 1,300 mg PO TID [facility] Last Admin: 02/12/24 08:49 Dose: 1,300 mg Documented By: CONOR Sodium Chloride (0.9 % Sodium Chloride Flush 3 Ml Syringe) 3 ml IVFLUSH QSHIFT [facility] Last Admin: 02/12/24 08:57 Dose: Not Given Documented By: CONOR Non-Admin Reason: No Access Vancomycin HCl (Vancomycin Hcl 125 Mg Capsule) 125 mg PO Q6H [facility] Last Admin: 02/12/24 08:49 Dose: 125 mg Documented By: CONOR Labs 02/12/24 05:49 02/12/24 05:49 Labs: Laboratory Results - last 24 hr 02/09/24 02/12/24 05:25 05:49 MCV 92.1 MCH 33.5 H MCHC 36.4 H RDW 15.7 Plt Count 129 L D MPV 11.8 Absolute Nucleated RBC 0.000 Nucleated RBC % (auto) 0.0 Anion Gap 16 Estim Creat Clear Calc 12.8 Estimated GFR 10 Random Glucose 129 H Calcium 8.0 L Complement C3 122 Complement C4 18 Assessment and Plan (1) C. difficile diarrhea: Status: Acute (2) UTI (urinary tract infection): Status: Acute (3) Thrombocytopenia: Status: Acute (4) Acute hyponatremia: Status: Acute (5) Transaminitis: Status: Acute (6) Acute kidney failure: Status: Acute Plan A 68 years old male with PMH of Alcohol abuse, cervical surgery presents to ED as he was found in his own feces in his home by neighbors weak and altered. Acute renal failure with anion-gap metabolic acidosis and uremia likely secondary to TTP Cr increased to 5.5 with no uremic symptoms as he did not have HD on Sun CT negative for obstruction dc IV fluids Nephrology consult , continue dialysis today Hematology following follow BMP, I\O pending ADAMTs 13 elevated LDH, pending Haptoglobin If no recovery in Cr he might need a kidney biopsy Acute hyponatremia 2/2 ARTHUR and possible SIADH resolved possible SIADH from alcoholism specially with elevated U.Na complicated UTI in male w E.Coli continue Ceftriaxone to finish 1 week (finish 02/13) C.Diff diarrhea 1 incident of diarrhea overnight, no Abd pain tested positive for antigen but negative for toxin started Vancomycin PO 02/09 Iron def. anemia of chronic disease Worsened down to 8, low Iron stores To start Iron supplement IV for now consider EPO Transaminitis mildly improved likely related to alcohol abuse and TTP monitor Thrombocytopenia likely secondary to alcohol abuse and TTP Hematology consult monitor CBC Elevated CK on IVF follow CK level DVT PPx SCDs The patient will need overnight hospital stay form onitoring KFT while on dialysis pending improvement in KFT and thrombocytopenia or possible biopsy Quality Stroke Does the patient have a stroke diagnosis?: No VTE Prior VTE?: No VTE Risk Level:: Medical - moderate - high VTE Device Contraindication: N/A - Device Ordered VTE Drug Contraindication: Treatment Not Indicated
[2024-02-12 12:00] VITALS: BP 119/58; PULSE 83; RESP 18; TEMP 36.4; O2SAT 97
[2024-02-12 12:33] LABS: Creatinine Urine 43.35 mg/dL; Total Protein Urine Random 57 mg/dL (<12)
[2024-02-12 15:37] VITALS: BP 149/78; PULSE 92; RESP 18; TEMP 36.4; O2SAT 97
[2024-02-12 18:53] LABS: Anti Glomerular Basement Memb <1.0 AI; Myeloperoxidase Antibody <1.0 AI; Proteinase 3 PR3 Antibodies <1.0 AI
[2024-02-12] MEDS: 0.9 % Sodium Chloride Flush 3 ML SYRINGE IVFLUSH (21:17)
[2024-02-12 23:46] VITALS: BP 117/57; PULSE 92; RESP 20; TEMP 36; O2SAT 94
[2024-02-13] VITALS (7 sets, daily range): BP systolic 136–158; BP diastolic 58–77; PULSE 84–94; RESP 18–20; TEMP 36.3–37.2; O2SAT 95–97
[2024-02-13] MEDS: vancomycin HCL 125 MG CAPSULE PO ×4 (01:25→20:46)
[2024-02-13 07:00] LABS: Hematocrit 21.9 % (42.0-52.0); Mean Corpuscular HGB Conc 36.5 g/dl (31.0-36.0); Mean Corpuscular Hemoglobin 33.9 pg (27.0-33.0); Mean Corpuscular Volume 92.8 fL (80.0-98.0); Mean Platelet Volume 11.7 fL (9.4-12.4); Platelet Count 149 X10*3/uL (160-400); Red Blood Count 2.36 X10*6/uL (4.60-5.80); Red Cell Distribution Width 15.3 % (11.0-16.0); White Blood Count 15.1 X10*3/uL (4.8-10.8)
[2024-02-13 07:10] LABS: Anion Gap 14 (12-20); Blood Urea Nitrogen 43 mg/dL (9-16); Calcium 8.2 mg/dL (8.4-10.2); Carbon Dioxide 23 mmol/L (22-29); Chloride 102 mmol/L (96-108); Creatinine Clr Calc Pharmacy 17.8; Estimated Glomerular Filt Rate 15; Glucose Random 138 mg/dL (60-115); Potassium 3.2 mmol/L (3.3-5.1); Sodium 136 mmol/L (135-145)
[2024-02-13] MEDS: Ferrous Sulfate 324 MG TABLET.DR PO ×2 (08:48→16:22)
[2024-02-13] MEDS: Sodium Bicarbonate 650 MG TABLET 1300 MG PO (08:48)
[2024-02-13] MEDS: PHENobarbitaL 30 MG TABLET PO (08:48)
[2024-02-13] MEDS: Labetalol HCL 100 MG TABLET PO ×2 (08:48→20:46)
[2024-02-13] MEDS: cefTRIAXone sodium 1 GM in 0.9 % Sodium Chloride 50 ML IV (08:49)
[2024-02-13] MEDS: 0.9 % Sodium Chloride Flush 3 ML SYRINGE IVFLUSH ×3 (08:49→20:47)
[2024-02-13] MEDS: Iron Sucrose Complex 200 MG in 0.9 % Sodium Chloride 100 ML 440 MG IV (09:50)
--- NOTE | 2024-02-13 10:11 | P.PNNP_ITS ---
Subjective Subjective Date of Service: 02/13/24 Interval history: Seen at bedside NO renal recovery yet Has had HD x 3 Physical Exam 2 Vital Signs: Vital Signs: Last Vital Signs Temp 98.4 F 02/13/24 08:00 Pulse 94 02/13/24 08:48 Resp 18 02/13/24 08:00 BP 152/58 H 02/13/24 08:48 Pulse Ox 96 02/13/24 08:00 O2 Del Method Room Air 02/13/24 08:00 BMI result Body Mass Index 23.2 Const: General: ill appearing Neck: Neck: Yes supple Resp: Auscultation: clear to auscultation bilaterally Cardio: Palpation: no palpable S3 Heart sounds: no rubs GI: Palpation (GI): Soft to palpation Auscultation: normal bowel sounds Neuro: Motor exam (neuro): Tremors during motor activity present Objective Data Labs 02/13/24 06:14 02/13/24 06:14 Labs: Laboratory Results - last 24 hr 02/09/24 02/12/24 02/13/24 05:25 11:30 06:14 WBC 15.1 H RBC 2.36 L Hgb 8.0 L Hct 21.9 L MCV 92.8 MCH 33.9 H MCHC 36.5 H RDW 15.3 Plt Count 149 L MPV 11.7 Absolute Nucleated RBC 0.000 Nucleated RBC % (auto) 0.0 Sodium 136 Potassium 3.2 L Chloride 102 Carbon Dioxide 23 Anion Gap 14 BUN 43 H Creatinine 3.97 H Estim Creat Clear Calc 17.8 Estimated GFR 15 Random Glucose 138 H Calcium 8.2 L U Random Total Protein 57 H Urine Creatinine 43.35 Proteinase 3 (PR3) Ab <1.0 Myeloperoxidase Ab <1.0 Glomerular Base Memb Ab <1.0 Complement C3 122 Complement C4 18 Microbiology Microbiology Results: Microbiology 02/07/24 Unknown Urine clean catch - Clean Catch Midstream Urine Culture - Final Escherichia coli Procedures Date of Service Date of Service: 02/13/24 Assessment & Plan Assessment and plan (1) C. difficile diarrhea: Status: Acute (2) UTI (urinary tract infection): Status: Acute (3) Thrombocytopenia: Status: Acute (4) Acute hyponatremia: Status: Acute (5) Transaminitis: Status: Acute (6) Acute kidney failure: Status: Acute (7) Increased anion gap metabolic acidosis: Status: Acute Plan 68-year-old man with severe acute kidney injury in setting of alcohol use. anemia with thrombocytopenia Has metabolic acidosis with hyponatremia. Clinically had uremic symptoms. s/p HD Given the history of anemia and thrombocytopenia HUS/TTP Hematology consultation appreciated C3/C4 normal Platelets improving ADAMTS-13 pending LDH elevated DC sodium bicarbonate. Monitor urine output. Will need kidney biopsy Discussed with patient and he is agreeable. Time Spent With Patient Time: Total time managing care of this patient today ____ minutes. Progress Note: Quality Stroke Does the patient have a stroke diagnosis?: No
--- NOTE | 2024-02-13 11:27 | HO.PM.IMPN ---
Subjective Subjective Date of Service: 02/13/24 Interval History: no complaints Physical Exam Vital Signs: Vital Signs: Last Vital Signs Temp 98.4 F 02/13/24 08:00 Pulse 94 02/13/24 08:48 Resp 18 02/13/24 08:00 BP 152/58 H 02/13/24 08:48 Pulse Ox 96 02/13/24 08:00 O2 Del Method Room Air 02/13/24 08:00 BMI result Body Mass Index 23.2 Const: General: ill appearing Neck: Neck: Yes supple Resp: Auscultation: clear to auscultation bilaterally Cardio: Palpation: no palpable S3 Heart sounds: no rubs GI: Palpation (GI): Soft to palpation Auscultation: normal bowel sounds Neuro: Motor exam (neuro): Tremors during motor activity present Objective Data Active Medications Acetaminophen (Acetaminophen 325 Mg Tablet) 650 mg PO Q6H PRN PRN Reason: Pain, Mild (Pain Scale 1-3), fever or headache Calcium Carbonate (Calcium Carbonate 750 Mg Tab.Chew) 750 mg PO Q4H PRN PRN Reason: Heartburn Ferrous Sulfate (Ferrous Sulfate 324 Mg Tablet.Dr) 324 mg PO BIDWM [facility] Last Admin: 02/13/24 08:48 Dose: 324 mg Documented By: CONOR Ceftriaxone Sodium 1 gm/ (Sodium Chloride) 50 mls @ 100 mls/hr IV Q24H [facility] Stop: 02/14/24 10:00 Last Infusion: 02/13/24 09:47 Dose: Infused Documented By: CONOR Iron Sucrose 200 mg/ Sodium (Chloride) 110 mls @ 440 mls/hr IV DAILY [facility] Stop: 02/14/24 09:14 Last Infusion: 02/13/24 10:29 Dose: Infused Documented By: CONOR Labetalol HCl (Labetalol Hcl 100 Mg Tablet) 100 mg PO BID [facility]; Protocol Last Admin: 02/13/24 08:48 Dose: 100 mg Documented By: CONOR Magnesium Hydroxide (Milk Of Magnesia 30 Ml Oral.Susp) 30 ml PO DAILY PRN PRN Reason: Constipation Melatonin (Melatonin 3 Mg Tablet) 6 mg PO BEDTIME PRN PRN Reason: Insomnia Metoclopramide HCl (Metoclopramide Hcl 10 Mg/2 Ml Vial) 5 mg IVPUSH Q6H PRN PRN Reason: Hiccups Ondansetron HCl (Ondansetron Hcl 4 Mg/2 Ml Vial) 4 mg IVPUSH Q4H PRN PRN Reason: Nausea and Vomiting Pharmacy Consult (Consult Rx Etoh Phenob Im/Po) 1 each MISCELLANE ONCE PRN; Protocol PRN Reason: Consult order Sodium Chloride (0.9 % Sodium Chloride Flush 3 Ml Syringe) 3 ml IVFLUSH QSHIFT [facility] Last Admin: 02/13/24 08:49 Dose: 3 ml Documented By: CONOR Vancomycin HCl (Vancomycin Hcl 125 Mg Capsule) 125 mg PO Q6H [facility] Last Admin: 02/13/24 08:48 Dose: 125 mg Documented By: CONOR Labs 02/13/24 06:14 02/13/24 06:14 Labs: Laboratory Results - last 24 hr 02/09/24 02/12/24 02/13/24 05:25 11:30 06:14 MCV 92.8 MCH 33.9 H MCHC 36.5 H RDW 15.3 Plt Count 149 L MPV 11.7 Absolute Nucleated RBC 0.000 Nucleated RBC % (auto) 0.0 Anion Gap 14 Estim Creat Clear Calc 17.8 Estimated GFR 15 Random Glucose 138 H Calcium 8.2 L U Random Total Protein 57 H Urine Creatinine 43.35 Proteinase 3 (PR3) Ab <1.0 Myeloperoxidase Ab <1.0 Glomerular Base Memb Ab <1.0 Assessment and Plan (1) C. difficile diarrhea: Status: Acute (2) UTI (urinary tract infection): Status: Acute (3) Thrombocytopenia: Status: Acute (4) Acute hyponatremia: Status: Acute (5) Transaminitis: Status: Acute (6) Acute kidney failure: Status: Acute Plan 68M PMH of Alcohol dependence, cervical surgery presented after being found in his own feces in his home by neighbors, weak and altered. found to have severe ARTHUR Acute renal failure with anion-gap metabolic acidosis and uremia likely secondary to TTP/HUS Nephrology following, continue dialysis Hematology following follow BMP, I\O pending ADAMTs 13 If no recovery in Cr he might need a kidney biopsy Acute hyponatremia 2/2 ARTHUR and possible SIADH resolved complicated UTI in male w E.Coli continue Ceftriaxone to finish 1 week (finish 02/13) C.Diff pcr positive, toxin negative likely colonization, but will treat given episode of diarrhea and ongoing ceftriaxone for uti started Vancomycin PO 02/09 Iron def. anemia of chronic disease Worsened down to 8, low Iron stores Iron supplement IV Transaminitis mildly improved likely related to alcohol abuse and TTP acute Thrombocytopenia TTP/hus Hematology consult monitor CBC DVT PPx hep sq full code reason for continued hospitalization:awaiting return of renal function Quality Stroke Does the patient have a stroke diagnosis?: No VTE Prior VTE?: No VTE Risk Level:: Medical - moderate - high VTE Device Contraindication: N/A - Device Ordered VTE Drug Contraindication: Treatment Not Indicated
[2024-02-13] MEDS: Throat Lozenge, Medicated LOZENGE 1 LOZENGE MUCOUS MEM ×2 (12:00→14:46)
[2024-02-13] MEDS: Heparin Sodium,Porcine 5,000 UNIT/ML VIAL 5000 UNIT SUBCUT ×2 (12:52→20:47)
[2024-02-13 13:01] LABS: IDNOW Serial# 08D9AD1C; Strep A Nucleic Acid Negative (Negative)
[2024-02-14] VITALS (14 sets, daily range): BP systolic 101–157; BP diastolic 39–78; PULSE 81–95; RESP 16–20; TEMP 36.3–36.7; O2SAT 93–99
[2024-02-14] MEDS: vancomycin HCL 125 MG CAPSULE PO ×4 (01:22→22:25)
[2024-02-14 07:12] LABS: Hemoglobin 7.4 g/dl (14.0-18.0); Mean Corpuscular HGB Conc 35.9 g/dl (31.0-36.0); Mean Corpuscular Hemoglobin 33.5 pg (27.0-33.0); Mean Corpuscular Volume 93.2 fL (80.0-98.0); Mean Platelet Volume 11.5 fL (9.4-12.4); Platelet Count 197 X10*3/uL (160-400); Red Blood Count 2.21 X10*6/uL (4.60-5.80); Red Cell Distribution Width 14.9 % (11.0-16.0); White Blood Count 11.6 X10*3/uL (4.8-10.8)
[2024-02-14 07:21] LABS: Hematocrit 20.6 % (42.0-52.0)
[2024-02-14 07:45] LABS: Anion Gap 13 (12-20)
[2024-02-14 07:51] LABS: Blood Urea Nitrogen 48 mg/dL (9-16); Calcium 8.3 mg/dL (8.4-10.2); Carbon Dioxide 23 mmol/L (22-29); Chloride 104 mmol/L (96-108); Glucose Fasting 151 mg/dL (60-99); Potassium 3.1 mmol/L (3.3-5.1); Sodium 137 mmol/L (135-145)
[2024-02-14 07:52] LABS: Creatinine Clr Calc Pharmacy 15.7; Estimated Glomerular Filt Rate 13
[2024-02-14] MEDS: Ferrous Sulfate 324 MG TABLET.DR PO ×2 (08:14→18:35)
[2024-02-14] MEDS: Labetalol HCL 100 MG TABLET PO ×2 (08:14→20:03)
[2024-02-14] MEDS: cefTRIAXone sodium 1 GM in 0.9 % Sodium Chloride 50 ML IV (08:30)
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
[2024-02-14] MEDS: 0.9 % Sodium Chloride Flush 3 ML SYRINGE IVFLUSH ×3 (09:12→19:50)
[2024-02-14] MEDS: Iron Sucrose Complex 200 MG in 0.9 % Sodium Chloride 100 ML 440 MG IV (09:13)
--- NOTE | 2024-02-14 09:23 | P.PNIM_ITS ---
Subjective Subjective Date of Service: 02/14/24 Interval History: no complaints Physical Exam 2 Vital Signs: Vital Signs: Last Vital Signs Temp 97.7 F 02/14/24 06:59 Pulse 81 02/14/24 06:59 Resp 18 02/14/24 06:59 BP 148/78 H 02/14/24 06:59 Pulse Ox 96 02/14/24 06:59 O2 Del Method Room Air 02/14/24 06:59 BMI result Body Mass Index 23.2 Const: General: ill appearing Neck: Neck: Yes supple Resp: Auscultation: clear to auscultation bilaterally Cardio: Palpation: no palpable S3 Heart sounds: no rubs GI: Palpation (GI): Soft to palpation Auscultation: normal bowel sounds Neuro: Motor exam (neuro): Tremors during motor activity present Objective Data Active Medications Acetaminophen (Acetaminophen 325 Mg Tablet) 650 mg PO Q6H PRN PRN Reason: Pain, Mild (Pain Scale 1-3), fever or headache Benzocaine (Throat Lozenge, Medicated Lozenge) 1 lozenge MUCOUS MEM Q2H PRN PRN Reason: Sore Throat Last Admin: 02/13/24 14:46 Dose: 1 lozenge Documented By: CONOR Calcium Carbonate (Calcium Carbonate 750 Mg Tab.Chew) 750 mg PO Q4H PRN PRN Reason: Heartburn Ferrous Sulfate (Ferrous Sulfate 324 Mg Tablet.Dr) 324 mg PO BIDWM [facility] Last Admin: 02/14/24 08:14 Dose: 324 mg Documented By: AKIN Heparin Sodium (Porcine) (Heparin Sodium,Porcine 5,000 Unit/Ml Vial) 5,000 unit SUBCUT Q8H [facility] Last Admin: 02/13/24 20:47 Dose: 5,000 unit Documented By: JUSTEN Ceftriaxone Sodium 1 gm/ (Sodium Chloride) 50 mls @ 100 mls/hr IV Q24H [facility] Stop: 02/14/24 10:00 Last Admin: 02/14/24 08:30 Dose: 100 mls/hr Documented By: AKIN Desmopressin Acetate 20 mcg/ (Sodium Chloride) 55 mls @ 100 mls/hr IV ONCE ONE Stop: 02/14/24 11:32 Labetalol HCl (Labetalol Hcl 100 Mg Tablet) 100 mg PO BID [facility]; Protocol Last Admin: 02/14/24 08:14 Dose: 100 mg Documented By: AKIN Magnesium Hydroxide (Milk Of Magnesia 30 Ml Oral.Susp) 30 ml PO DAILY PRN PRN Reason: Constipation Melatonin (Melatonin 3 Mg Tablet) 6 mg PO BEDTIME PRN PRN Reason: Insomnia Metoclopramide HCl (Metoclopramide Hcl 10 Mg/2 Ml Vial) 5 mg IVPUSH Q6H PRN PRN Reason: Hiccups Ondansetron HCl (Ondansetron Hcl 4 Mg/2 Ml Vial) 4 mg IVPUSH Q4H PRN PRN Reason: Nausea and Vomiting Pharmacy Consult (Consult Rx Etoh Phenob Im/Po) 1 each MISCELLANE ONCE PRN; Protocol PRN Reason: Consult order Sodium Chloride (0.9 % Sodium Chloride Flush 3 Ml Syringe) 3 ml IVFLUSH QSHIFT [facility] Last Admin: 02/13/24 20:47 Dose: 3 ml Documented By: JUSTEN Vancomycin HCl (Vancomycin Hcl 125 Mg Capsule) 125 mg PO Q6H [facility] Last Admin: 02/14/24 08:14 Dose: 125 mg Documented By: AKIN Labs 02/14/24 06:10 02/14/24 06:10 Labs: Laboratory Results - last 24 hr 02/13/24 02/13/24 02/14/24 12:00 15:21 06:10 MCV 93.2 MCH 33.5 H MCHC 35.9 RDW 14.9 Plt Count 197 D MPV 11.5 Absolute Nucleated RBC 0.000 Nucleated RBC % (auto) 0.0 Anion Gap 13 Estim Creat Clear Calc 15.7 Estimated GFR 13 Fasting Glucose 151 H Calcium 8.3 L S. pyogenes GrpA ALBERTINA Negative Blood Type A Positive Antibody Screen NEGATIVE Assessment and Plan (1) C. difficile diarrhea: Status: Acute (2) UTI (urinary tract infection): Status: Acute (3) Thrombocytopenia: Status: Acute (4) Acute hyponatremia: Status: Acute (5) Transaminitis: Status: Acute (6) Acute kidney failure: Status: Acute Plan 68M PMH of Alcohol dependence, cervical surgery presented after being found in his own feces in his home by neighbors, weak and altered. found to have severe ARTHUR Acute renal failure with anion-gap metabolic acidosis and uremia likely secondary to TTP/HUS Nephrology following, continue dialysis Hematology following follow BMP, I\O pending ADAMTs 13 plan for kidney biopsy today 02/14/24 Acute hyponatremia resolved complicated UTI in male w E.Coli continue Ceftriaxone to finish 1 week (finish 02/13) C.Diff pcr positive, toxin negative likely colonization, but will treat given episode of diarrhea and ongoing ceftriaxone for uti started Vancomycin PO 02/09 Iron def. anemia of chronic disease Worsened down to 7.4, low Iron stores Iron supplement IV Transaminitis likely related to alcohol abuse and TTP acute Thrombocytopenia TTP/hus monitor CBC DVT PPx hep sq full code reason for continued hospitalization:awaiting return of renal function Quality Stroke Does the patient have a stroke diagnosis?: No VTE Prior VTE?: No VTE Risk Level:: Medical - moderate - high VTE Device Contraindication: N/A - Device Ordered VTE Drug Contraindication: Treatment Not Indicated
--- NOTE | 2024-02-14 11:04 | MHC.CM.PN ---
EMR REVIEWED, PER HOSPITALIST/NEPHRO PLAN FOR KIDNEY BIOPSY TODAY, CM RECEIVED A CALL FROM PT'S SON JAZZ FILLING IN CM ON PT'S ETOH HX AND THAT PT HAS ALWAYS BEEN INDEPENDENT AND WAS JUST LIVING IN HIS SISTERS BASEMENT, JAZZ AWARE PT HAS BEEN RECOMMENDED STR AND PLAN FOR LOCAL SNF, POSSIBLY [facility] WHO HAS BEEN FOLLOWING PT. CM WILL CONT TO FOLLOW. PT'S DTR IS JACEK KEMP [phone] [facility] JAZZ SHE IS CURRENTLY OUT OF THE COUNTRY, TASK SENT TO REGISTRATION TO ADD CONTACT.
[2024-02-14] MEDS: Desmopressin Acetate 20 MCG in 0.9 % Sodium Chloride 50 ML 100 MCG IV (11:18)
[2024-02-14 11:33] LABS: Lactate Dehydrogenase 307 U/L (118-273)
[2024-02-14 11:39] LABS: Alanine Aminotransferase 32 U/L (0-40); Albumin Level 2.3 g/dL (3.5-5.0); Alkaline Phosphatase 136 U/L (39-117); Aspartate Amino Transferase 58 U/L (5-37); Bilirubin Direct 0.4 mg/dL (0.0-0.5); Bilirubin Total 0.6 mg/dL (0.0-1.0); Total Protein 4.8 g/dL (6.5-8.0)
--- NOTE | 2024-02-14 12:24 | PM.PROC ---
Brief Operative Note Date of procedure: 02/14/24 Pre-op diagnosis: ARTHUR, concern for HUS/TTP Post-op diagnosis: same Procedure: CT right renal biopsy 3 x 18 g cores performed. 20 IV hydralazine, 0.5 mg versed, 25 mcg fentanyl given to achieve SBP<140 No immediate complications. Recommend strict blood pressure control (goal <140/90) Condition: stable Disposition: PACU
[2024-02-14 16:17] LABS: ADAMTS13 Inhibitor 0.7 BEU (<0.4)
[2024-02-15] VITALS (9 sets, daily range): BP systolic 127–180; BP diastolic 61–84; PULSE 81–90; RESP 18–20; TEMP 36.4–37.1; O2SAT 90–99
[2024-02-15] MEDS: vancomycin HCL 125 MG CAPSULE PO ×4 (04:00→20:17)
[2024-02-15 06:44] LABS: Anion Gap 12 (12-20); Blood Urea Nitrogen 47 mg/dL (9-16); Calcium 8.3 mg/dL (8.4-10.2); Carbon Dioxide 24 mmol/L (22-29); Chloride 103 mmol/L (96-108); Creatinine Clr Calc Pharmacy 15.4; Estimated Glomerular Filt Rate 13; Glucose Fasting 150 mg/dL (60-99); Sodium 136 mmol/L (135-145)
[2024-02-15 07:06] LABS: Hemoglobin 7.1 g/dl (14.0-18.0); Mean Corpuscular HGB Conc 36.2 g/dl (31.0-36.0); Mean Corpuscular Hemoglobin 34.6 pg (27.0-33.0); Mean Corpuscular Volume 95.6 fL (80.0-98.0); Mean Platelet Volume 11.1 fL (9.4-12.4); Platelet Count 214 X10*3/uL (160-400); Red Blood Count 2.05 X10*6/uL (4.60-5.80); Red Cell Distribution Width 14.6 % (11.0-16.0)
[2024-02-15 07:09] LABS: ADAMTS13 Activity 0.24 IU/mL (0.68-1.63)
[2024-02-15 07:53] LABS: Hematocrit 19.6 % (42.0-52.0)
[2024-02-15] MEDS: 0.9 % Sodium Chloride Flush 3 ML SYRINGE IVFLUSH ×3 (08:08→20:17)
[2024-02-15] MEDS: Labetalol HCL 100 MG TABLET PO ×2 (08:08→20:17)
[2024-02-15] MEDS: Potassium Chloride ER 20 MEQ TAB.ER.PRT 40 MEQ PO (08:08)
[2024-02-15] MEDS: Ferrous Sulfate 324 MG TABLET.DR PO ×2 (08:08→16:51)
--- NOTE | 2024-02-15 09:31 | P.PNIM_ITS ---
Subjective Subjective Date of Service: 02/15/24 Interval History: no complaints Physical Exam 2 Vital Signs: Vital Signs: Last Vital Signs Temp 98.0 F 02/15/24 07:55 Pulse 88 02/15/24 07:55 Resp 18 02/15/24 07:55 BP 174/77 H 02/15/24 07:55 Pulse Ox 94 02/15/24 07:55 O2 Del Method Room Air 02/15/24 07:55 BMI result Body Mass Index 23.2 Const: General: ill appearing Neck: Neck: Yes supple Resp: Auscultation: clear to auscultation bilaterally Cardio: Palpation: no palpable S3 Heart sounds: no rubs GI: Palpation (GI): Soft to palpation Auscultation: normal bowel sounds Neuro: Motor exam (neuro): Tremors during motor activity present Objective Data Active Medications Acetaminophen (Acetaminophen 325 Mg Tablet) 650 mg PO Q6H PRN PRN Reason: Pain, Mild (Pain Scale 1-3), fever or headache Benzocaine (Throat Lozenge, Medicated Lozenge) 1 lozenge MUCOUS MEM Q2H PRN PRN Reason: Sore Throat Last Admin: 02/13/24 14:46 Dose: 1 lozenge Documented By: CONOR Calcium Carbonate (Calcium Carbonate 750 Mg Tab.Chew) 750 mg PO Q4H PRN PRN Reason: Heartburn Ferrous Sulfate (Ferrous Sulfate 324 Mg Tablet.Dr) 324 mg PO BIDM [facility] Last Admin: 02/15/24 08:08 Dose: 324 mg Documented By: TRISTON Heparin Sodium (Porcine) (Heparin Sodium,Porcine 5,000 Unit/Ml Vial) 5,000 unit SUBCUT Q8H [facility] Last Admin: 02/13/24 20:47 Dose: 5,000 unit Documented By: JUSTEN Sodium Chloride (Ns) 100 mls @ 100 mls/hr IV ONCE ONE Stop: 02/15/24 10:07 Labetalol HCl (Labetalol Hcl 100 Mg Tablet) 100 mg PO BID [facility]; Protocol Last Admin: 02/15/24 08:08 Dose: 100 mg Documented By: TRISTON Magnesium Hydroxide (Milk Of Magnesia 30 Ml Oral.Susp) 30 ml PO DAILY PRN PRN Reason: Constipation Melatonin (Melatonin 3 Mg Tablet) 6 mg PO BEDTIME PRN PRN Reason: Insomnia Metoclopramide HCl (Metoclopramide Hcl 10 Mg/2 Ml Vial) 5 mg IVPUSH Q6H PRN PRN Reason: Hiccups Ondansetron HCl (Ondansetron Hcl 4 Mg/2 Ml Vial) 4 mg IVPUSH Q4H PRN PRN Reason: Nausea and Vomiting Pharmacy Consult (Consult Rx Etoh Phenob Im/Po) 1 each MISCELLANE ONCE PRN; Protocol PRN Reason: Consult order Sodium Chloride (0.9 % Sodium Chloride Flush 3 Ml Syringe) 3 ml IVFLUSH QSHIFT [facility] Last Admin: 02/15/24 08:08 Dose: 3 ml Documented By: TRISTON Vancomycin HCl (Vancomycin Hcl 125 Mg Capsule) 125 mg PO Q6H [facility] Last Admin: 02/15/24 08:08 Dose: 125 mg Documented By: TRISTON Labs 02/15/24 05:43 02/15/24 05:43 Labs: Laboratory Results - last 24 hr 02/08/24 02/13/24 02/14/24 10:18 15:21 06:10 MCV MCH MCHC RDW Plt Count MPV Absolute Nucleated RBC Nucleated RBC % (auto) Smear Path Review SEE NOTE [id number] Activity Intrp 0.24 L* [id number] Inhibitor 0.7 H Anion Gap Estim Creat Clear Calc Estimated GFR Fasting Glucose Calcium Total Bilirubin 0.6 Direct Bilirubin 0.4 AST 58 H ALT 32 Alkaline Phosphatase 136 H Lactate Dehydrogenase 307 H Total Protein 4.8 L Albumin 2.3 L Blood Type A Positive Antibody Screen NEGATIVE Crossmatch See Detail 02/15/24 05:43 MCV 95.6 MCH 34.6 H MCHC 36.2 H RDW 14.6 Plt Count 214 MPV 11.1 Absolute Nucleated RBC 0.000 Nucleated RBC % (auto) 0.0 Smear Path Review [id number] Activity Intrp [id number] Inhibitor Anion Gap 12 Estim Creat Clear Calc 15.4 Estimated GFR 13 Fasting Glucose 150 H Calcium 8.3 L Total Bilirubin Direct Bilirubin AST ALT Alkaline Phosphatase Lactate Dehydrogenase Total Protein Albumin Blood Type Antibody Screen Crossmatch Assessment and Plan (1) C. difficile diarrhea: Status: Acute (2) UTI (urinary tract infection): Status: Acute (3) Thrombocytopenia: Status: Acute (4) Acute hyponatremia: Status: Acute (5) Transaminitis: Status: Acute (6) Acute kidney failure: Status: Acute Plan 68M PMH of Alcohol dependence, cervical surgery presented after being found in his own feces in his home by neighbors, weak and altered. found to have severe ARTHUR Acute renal failure with anion-gap metabolic acidosis and acute metabolic encephalopathy due to uremia mental status improved, non oliguric Nephrology following, continue dialysis Hematology following follow BMP, I\O ADAMTs 13 - activity mildly low, inhibitor mildly high - non diagnostic s/p kidney biopsy today 02/14/24 Acute hyponatremia resolved complicated UTI in male w E.Coli Ceftriaxone course completed C.Diff pcr positive, toxin negative likely colonization, but will treat until 02/16/24 Iron def. anemia of chronic disease acute on chronic s/p 1 unit prbc 02/14/24 hgb still 7.1, will transfuse another unit acute Thrombocytopenia ?TTP/hus vs etoh much improved DVT PPx hep sq full code reason for continued hospitalization:awaiting return of renal function Quality Stroke Does the patient have a stroke diagnosis?: No VTE Prior VTE?: No VTE Risk Level:: Medical - moderate - high VTE Device Contraindication: N/A - Device Ordered VTE Drug Contraindication: Treatment Not Indicated
[2024-02-15 10:43] LABS: Lactate Dehydrogenase 216 U/L (118-273)
[2024-02-15 10:44] LABS: Haptoglobin 259 mg/dL (40-268)
--- NOTE | 2024-02-15 14:12 | P.PNHO-ONC_ITS ---
Medical Summary - Medical Summary Date of Service: 02/15/24 Chief complaint: Weakness Primary Care Provider: Unknown Physician Medical Summary: DIAGNOSIS: CKD, ANEMIA, THROMBOCYTOPENIA. Interval History Interval history: Patient is lying in bed. He appears slightly uncomfortable, he denies pain but says he is very weak and is not able to walk. He is receiving a unit of blood. Aware that he underwent kidney biopsy yesterday. Review of Systems - Constitutional Reports as per HPI - Neurologic Denies dizziness, Denies loss of vision, Denies numbness, Denies tingling PMFSH Social History: Social History (Last Reviewed 02/10/24 @ 12:12 by Cj Penn PT) Living Situation History: Household Members: Other Household Members Other:: sister Housing: House Tobacco History: Patient Tobacco Use Status: Tobacco use Unknown Second Hand Smoke Exposure: No Occupation Assessmet: service: No Home Medications and Allergies Current Medications: Current Medications Acetaminophen (Acetaminophen 325 Mg Tablet) 650 mg PO Q6H PRN PRN Reason: Pain, Mild (Pain Scale 1-3), fever or headache Benzocaine (Throat Lozenge, Medicated Lozenge) 1 lozenge MUCOUS MEM Q2H PRN PRN Reason: Sore Throat Last Admin: 02/13/24 14:46 Dose: 1 lozenge Calcium Carbonate (Calcium Carbonate 750 Mg Tab.Chew) 750 mg PO Q4H PRN PRN Reason: Heartburn Ferrous Sulfate (Ferrous Sulfate 324 Mg Tablet.Dr) 324 mg PO BIDWM [facility] Last Admin: 02/15/24 08:08 Dose: 324 mg Heparin Sodium (Porcine) (Heparin Sodium,Porcine 5,000 Unit/Ml Vial) 5,000 unit SUBCUT Q8H [facility] Last Admin: 02/13/24 20:47 Dose: 5,000 unit Labetalol HCl (Labetalol Hcl 100 Mg Tablet) 100 mg PO BID [facility]; Protocol Last Admin: 02/15/24 08:08 Dose: 100 mg Magnesium Hydroxide (Milk Of Magnesia 30 Ml Oral.Susp) 30 ml PO DAILY PRN PRN Reason: Constipation Melatonin (Melatonin 3 Mg Tablet) 6 mg PO BEDTIME PRN PRN Reason: Insomnia Metoclopramide HCl (Metoclopramide Hcl 10 Mg/2 Ml Vial) 5 mg IVPUSH Q6H PRN PRN Reason: Hiccups Ondansetron HCl (Ondansetron Hcl 4 Mg/2 Ml Vial) 4 mg IVPUSH Q4H PRN PRN Reason: Nausea and Vomiting Pharmacy Consult (Consult Rx Etoh Phenob Im/Po) 1 each MISCELLANE ONCE PRN; Protocol PRN Reason: Consult order Sodium Chloride (0.9 % Sodium Chloride Flush 3 Ml Syringe) 3 ml IVFLUSH QSHIFT [facility] Last Admin: 02/15/24 08:08 Dose: 3 ml Vancomycin HCl (Vancomycin Hcl 125 Mg Capsule) 125 mg PO Q6H [facility] Last Admin: 02/15/24 08:08 Dose: 125 mg Home Medications ?Medication ?Instructions ?Recorded ?Confirmed ?Type No Known Home Meds 02/07/24 02/07/24 History Allergies Allergy/AdvReac Type Severity Reaction Status Date / Time No Known Allergies Allergy Verified 02/14/24 12:56 Exam Vital signs: Vital Signs Temp 98.6 F 02/15/24 13:31 Pulse 86 02/15/24 13:31 Resp 20 02/15/24 13:31 BP 155/78 H 02/15/24 13:31 Pulse Ox 99 02/15/24 11:27 O2 Del Method Room Air 02/15/24 11:27 Intake & Output 02/14/24 02/15/24 02/15/24 18:59 06:59 18:59 Intake Total 315 / 665 350 / 665 930 / 930 Output Total 450 / 1150 700 / 1150 500 / 500 Balance -135 / -485 -350 / -485 430 / 430 Urine Output (Average ml/kg/hr) 0.51 0.79 0.57 Intake: Intake, Oral Amount 480 / 480 Intake (Blood Product) Amount 0 / 350 350 / 350 350 / 350 Red Blood Cells (E0336) Unit 0 / 350 350 / 350 [id number] Red Blood Cells (E0336) Unit 350 / 350 [id number] Intake, IV Amount 315 / 315 100 / 100 0.9 % Sodium Chloride 100 ml @ 100 / 100 100 / 100 100 mls/hr IV ONCE ONE Rx#: [id number] Desmopressin Acetate 20 mcg In 55 / 55 0.9 % Sodium Chloride 50 ml @ 100 mls/hr IV ONCE ONE Rx#: [id number] Iron Sucrose Complex 200 mg In 110 / 110 0.9 % Sodium Chloride 100 ml @ 440 mls/hr IV DAILY [facility] Rx#: [id number] cefTRIAXone sodium 1 gm In 0.9 50 / 50 % Sodium Chloride 50 ml @ 100 mls/hr IV Q24H [facility] Rx#: [id number] Output: Output, Urine Amount 700 / 700 500 / 500 Output, Urine Amount (Catheter) 450 / 450 Urethral 450 / 450 Other: Meal Refused No NPO Yes No Breakfast % Eaten bites Lunch % Eaten 25% Dinner % Eaten bites Number of Bowel Movements 1 2 Urine vickers F/C Urine Color Yellow Last Bowel Movement 02/13/24 02/13/24 Stool Incontinent Incontinent Stool Amount Small Large Stool Color Brown Stool Consistency Loose Soft Weight 73.4 kg BMI result Body Mass Index 23.2 - Constitutional Present: chronically ill appearing - Routine HEENT Exam Head: Present: normal inspection, normocephalic - Routine Respiratory Exam Absent: rhonchi, stridor - Routine Cardiovascular Exam Cardiovascular: Present: S1, S2 Data - Labs CBC & Chem 7: 02/15/24 05:43 02/15/24 05:43 - Imaging Radiologist's impression: ITS Impressions Abdomen/Pelvis CT 02/07/24 12:03 IMPRESSION: Unremarkable study. No acute findings. No evidence for solid organ injury. Advanced hepatic steatosis is noted. Fleischner guidelines were followed. Electronically signed by: Robe Long MD 02/07/2024 04:18 PM EDT RP Cervical Spine CT 02/07/24 12:03 IMPRESSION: Extensive postsurgical change. No fracture. Fleischner guidelines were followed. Electronically signed by: Robe Long MD 02/07/2024 04:07 PM EDT RP Chest CT 02/07/24 12:03 IMPRESSION: No acute findings in the chest. Fleischner guidelines were followed. Electronically signed by: Robe Long MD 02/07/2024 04:14 PM EDT RP Head CT 02/07/24 12:03 IMPRESSION: No acute intracranial pathology. Electronically signed by: Robe Long MD 02/07/2024 03:42 PM EDT RP Insertion Tunneled Catheter 02/08/24 11:00 IMPRESSION: Placement of a non-tunneled hemodialysis catheter in the right internal jugular vein. PLAN: -The catheter may be used immediately. This procedure was performed by Nathan Rondon PA-C, and directly supervised by Dr. Heller. Electronically signed by: Dioni Heller MD 02/08/2024 01:23 PM EDT RP Assessment and Plan Patient Active problem list reviewed?: Yes (1) Thrombocytopenia Status: Acute Assessment and plan: 68 year old gentleman, with history of alcoholic abuse. Noted to have anemia and thrombocytopenia. Significant renal failure. Rhabdomyolysis. CT scan of the abdomen pelvis revealed: Unremarkable study. No acute findings. No evidence for solid organ injury. Advanced hepatic steatosis is noted. LDH is not significantly elevated, peripheral smear does not show schistocytes, thrombocytopenia has improved, actually normalized. He continues to have moderately severe anemia and renal failure. He did not respond to hemodialysis, he underwent kidney biopsy today. LFTs showed normal bilirubin and reticulocytopenia. His anemia is probably secondary to kidney failure in bone marrow suppression from alcoholism. No reason to suspect myelophthisic process or TMA/TTP. No evidence of DIC, coagulation studies are normal. He received 1 unit PRBC yesterday but most of it appears to have infiltrated into his left arm. Further studies show haptoglobin today to be on the high side, LDH is normal, therefore no evidence of hemolysis. He is receiving a 2nd unit of PRBC today. Await results of kidney biopsy. Blood transfusion to keep his hemoglobin above 8 gram/dL. - Time Spent With Patient Time Spent with Patient (in minutes): 10
--- NOTE | 2024-02-15 14:32 | P.PNNP_ITS ---
Subjective Subjective Date of Service: 02/15/24 Interval history: Events noted. Urine output is improving. More alert. Creatinine is plateaued. Status post kidney biopsy on 02/14/2024. Hemoglobin continues to trend downward. Platelets are improving Physical Exam 2 Vital Signs: Vital Signs: Last Vital Signs Temp 98.6 F 02/15/24 13:31 Pulse 86 02/15/24 13:31 Resp 20 02/15/24 13:31 BP 155/78 H 02/15/24 13:31 Pulse Ox 99 02/15/24 11:27 O2 Del Method Room Air 02/15/24 11:27 BMI result Body Mass Index 23.2 Awake. Comfortable. Neck is supple. Mucosa moist. Lungs bilateral scattered rhonchi. Heart S1-S2 heard no gallop. Abdomen soft. Extremities no edema. No involuntary movements. No myoclonus. Const: General: ill appearing Neck: Neck: Yes supple Resp: Auscultation: clear to auscultation bilaterally Cardio: Palpation: no palpable S3 Heart sounds: no rubs GI: Palpation (GI): Soft to palpation Auscultation: normal bowel sounds Neuro: Motor exam (neuro): Tremors during motor activity present Objective Data Labs 02/16/24 06:42 02/16/24 06:42 Labs: Laboratory Results - last 24 hr 02/08/24 02/13/24 02/15/24 10:18 15:21 05:43 WBC 11.0 H RBC 2.05 L Hgb 7.1 L Hct 19.6 L* MCV 95.6 MCH 34.6 H MCHC 36.2 H RDW 14.6 Plt Count 214 MPV 11.1 Absolute Nucleated RBC 0.000 Nucleated RBC % (auto) 0.0 [id number] Activity Intrp 0.24 L* [id number] Inhibitor 0.7 H Sodium 136 Potassium 3.0 L Chloride 103 Carbon Dioxide 24 Anion Gap 12 BUN 47 H Creatinine 4.58 H* Estim Creat Clear Calc 15.4 Estimated GFR 13 Fasting Glucose 150 H Haptoglobin Calcium 8.3 L Lactate Dehydrogenase Blood Type A Positive Antibody Screen NEGATIVE Crossmatch See Detail 02/15/24 10:17 WBC RBC Hgb Hct MCV MCH MCHC RDW Plt Count MPV Absolute Nucleated RBC Nucleated RBC % (auto) [id number] Activity Intrp [id number] Inhibitor Sodium Potassium Chloride Carbon Dioxide Anion Gap BUN Creatinine Estim Creat Clear Calc Estimated GFR Fasting Glucose Haptoglobin 259 Calcium Lactate Dehydrogenase 216 Blood Type Antibody Screen Crossmatch Microbiology Microbiology Results: Microbiology 02/07/24 Unknown Urine clean catch - Clean Catch Midstream Urine Culture - Final Escherichia coli Procedures Date of Service Date of Service: 02/16/24 Assessment & Plan Assessment and plan (1) C. difficile diarrhea: Status: Acute (2) UTI (urinary tract infection): Status: Acute (3) Thrombocytopenia: Status: Acute (4) Acute hyponatremia: Status: Acute (5) Transaminitis: Status: Acute (6) Acute kidney failure: Status: Acute (7) Increased anion gap metabolic acidosis: Status: Acute Plan 68-year-old man with severe acute kidney injury in setting of alcohol use. anemia with thrombocytopenia Had metabolic acidosis with hyponatremia. Clinically had uremic symptoms. s/p HD Last dialysis was on 02/12/2024 history of anemia and thrombocytopenia : Concern for HUS/TTP Hematology consultation appreciated C3/C4 normal Platelets improving ADAMTS-13 low LDH elevated Monitor urine output. Await results of kidney biopsy. Since creatinine has plateaued and urine output is improving I will hold dialysis today and watch his renal function Time Spent With Patient Time: Total time managing care of this patient today ____ minutes. Progress Note: Quality Stroke Does the patient have a stroke diagnosis?: No
--- NOTE | 2024-02-15 15:24 | MHC.CM.PN ---
Spoke with patient and his son via phone. The patient was able to name his 2 adult children as HCPs. The document has been signed witnessed and scanned into the EMR. A hard copy has been placed on the chart. TERESA STR via BLS.
[2024-02-15] MEDS: amLODIPine Besylate 5 MG TABLET PO (16:51)
[2024-02-16] MEDS: vancomycin HCL 125 MG CAPSULE PO (02:46)
[2024-02-16 03:30] VITALS: BP 157/78; PULSE 89; RESP 20; TEMP 36.6; O2SAT 90
[2024-02-16 07:17] LABS: Hematocrit 24.1 % (42.0-52.0); Hemoglobin 8.5 g/dl (14.0-18.0); Mean Corpuscular HGB Conc 35.3 g/dl (31.0-36.0); Mean Corpuscular Hemoglobin 32.8 pg (27.0-33.0); Mean Corpuscular Volume 93.1 fL (80.0-98.0); Mean Platelet Volume 10.6 fL (9.4-12.4); Platelet Count 242 X10*3/uL (160-400); Red Blood Count 2.59 X10*6/uL (4.60-5.80); Red Cell Distribution Width 16.9 % (11.0-16.0); White Blood Count 10.8 X10*3/uL (4.8-10.8)
[2024-02-16 07:43] VITALS: BP 153/72; PULSE 90; RESP 20; TEMP 36.7; O2SAT 90
[2024-02-16 08:17] LABS: Anion Gap 14 (12-20); Blood Urea Nitrogen 42 mg/dL (9-16); Calcium 8.5 mg/dL (8.4-10.2); Carbon Dioxide 22 mmol/L (22-29); Chloride 105 mmol/L (96-108); Creatinine Clr Calc Pharmacy 18.3; Estimated Glomerular Filt Rate 16; Glucose Fasting 134 mg/dL (60-99); Potassium 3.1 mmol/L (3.3-5.1); Sodium 138 mmol/L (135-145)
[2024-02-16 08:26] LABS: Magnesium 1.3 mg/dL (1.6-2.6)
[2024-02-16] MEDS: Labetalol HCL 100 MG TABLET PO ×2 (09:46→19:30)
[2024-02-16] MEDS: Ferrous Sulfate 324 MG TABLET.DR PO ×2 (09:46→16:15)
[2024-02-16] MEDS: 0.9 % Sodium Chloride Flush 3 ML SYRINGE IVFLUSH ×2 (09:46→19:30)
[2024-02-16] MEDS: amLODIPine Besylate 5 MG TABLET PO (09:46)
--- NOTE | 2024-02-16 09:49 | HO.PM.IMPN ---
Subjective Subjective Date of Service: 02/16/24 Interval History: no complaints Physical Exam Vital Signs: Vital Signs: Last Vital Signs Temp 98.1 F 02/16/24 07:43 Pulse 90 02/16/24 07:43 Resp 20 02/16/24 07:43 BP 153/72 H 02/16/24 07:43 Pulse Ox 90 L 02/16/24 07:43 O2 Del Method Room Air 02/16/24 07:43 BMI result Body Mass Index 23.2 Awake. Comfortable. Neck is supple. Mucosa moist. Lungs bilateral scattered rhonchi. Heart S1-S2 heard no gallop. Abdomen soft. Extremities no edema. No involuntary movements. No myoclonus. Const: General: ill appearing Neck: Neck: Yes supple Resp: Auscultation: clear to auscultation bilaterally Cardio: Palpation: no palpable S3 Heart sounds: no rubs GI: Palpation (GI): Soft to palpation Auscultation: normal bowel sounds Neuro: Motor exam (neuro): Tremors during motor activity present Objective Data Active Medications Acetaminophen (Acetaminophen 325 Mg Tablet) 650 mg PO Q6H PRN PRN Reason: Pain, Mild (Pain Scale 1-3), fever or headache Amlodipine Besylate (Amlodipine Besylate 5 Mg Tablet) 5 mg PO DAILY [facility]; Protocol Last Admin: 02/16/24 09:46 Dose: 5 mg Documented By: JANIE Benzocaine (Throat Lozenge, Medicated Lozenge) 1 lozenge MUCOUS MEM Q2H PRN PRN Reason: Sore Throat Last Admin: 02/13/24 14:46 Dose: 1 lozenge Documented By: CONOR Calcium Carbonate (Calcium Carbonate 750 Mg Tab.Chew) 750 mg PO Q4H PRN PRN Reason: Heartburn Ferrous Sulfate (Ferrous Sulfate 324 Mg Tablet.) 324 mg PO BIDWM [facility] Last Admin: 02/16/24 09:46 Dose: 324 mg Documented By: JANIE Heparin Sodium (Porcine) (Heparin Sodium,Porcine 5,000 Unit/Ml Vial) 5,000 unit SUBCUT Q8H [facility] Last Admin: 02/13/24 20:47 Dose: 5,000 unit Documented By: JUSTEN Labetalol HCl (Labetalol Hcl 100 Mg Tablet) 100 mg PO BID [facility]; Protocol Last Admin: 02/16/24 09:46 Dose: 100 mg Documented By: JANIE Magnesium Hydroxide (Milk Of Magnesia 30 Ml Oral.Susp) 30 ml PO DAILY PRN PRN Reason: Constipation Melatonin (Melatonin 3 Mg Tablet) 6 mg PO BEDTIME PRN PRN Reason: Insomnia Metoclopramide HCl (Metoclopramide Hcl 10 Mg/2 Ml Vial) 5 mg IVPUSH Q6H PRN PRN Reason: Hiccups Ondansetron HCl (Ondansetron Hcl 4 Mg/2 Ml Vial) 4 mg IVPUSH Q4H PRN PRN Reason: Nausea and Vomiting Pharmacy Consult (Consult Rx Etoh Phenob Im/Po) 1 each MISCELLANE ONCE PRN; Protocol PRN Reason: Consult order Sodium Chloride (0.9 % Sodium Chloride Flush 3 Ml Syringe) [facility] Last Admin: 02/16/24 09:46 Dose: 3 ml Documented By: JANIE Labs 02/16/24 06:42 02/16/24 06:42 Labs: Laboratory Results - last 24 hr 02/13/24 02/15/24 02/16/24 15:21 10:17 06:42 MCV 93.1 MCH 32.8 MCHC 35.3 RDW 16.9 H Plt Count 242 MPV 10.6 Absolute Nucleated RBC 0.000 Nucleated RBC % (auto) 0.0 Anion Gap 14 Estim Creat Clear Calc 18.3 Estimated GFR 16 Fasting Glucose 134 H Haptoglobin 259 Calcium 8.5 Magnesium 1.3 L* Lactate Dehydrogenase 216 Blood Type A Positive Antibody Screen NEGATIVE Crossmatch See Detail Assessment and Plan (1) C. difficile diarrhea: Status: Acute (2) UTI (urinary tract infection): Status: Acute (3) Thrombocytopenia: Status: Acute (4) Acute hyponatremia: Status: Acute (5) Transaminitis: Status: Acute (6) Acute kidney failure: Status: Acute Plan 68M PMH of Alcohol dependence, cervical surgery presented after being found in his own feces in his home by neighbors, weak and altered. found to have severe ARTHUR Acute renal failure with anion-gap metabolic acidosis and acute metabolic encephalopathy due to uremia mental status improved, non oliguric Nephrology following, continue dialysis Hematology following follow BMP, I\O ADAMTs 13 - activity mildly low, inhibitor mildly high - non diagnostic s/p kidney biopsy 02/14/24 Acute hyponatremia resolved Acute hypomagnesemia and hypokalemia Replace and monitor complicated UTI in male w E.Coli Ceftriaxone course completed C.Diff pcr positive, toxin negative Completed empiric vancomycin 2 days post discontinuing ceftriaxone Iron def. anemia of chronic disease acute on chronic s/p 1 unit prbc 02/14/24, 1 unit PRBC 02/15/2024 Hemoglobin improved appropriately, monitor acute Thrombocytopenia ?TTP/hus vs etoh much improved DVT PPx hep sq full code reason for continued hospitalization:awaiting return of renal function Quality Stroke Does the patient have a stroke diagnosis?: No VTE Prior VTE?: No VTE Risk Level:: Medical - moderate - high VTE Device Contraindication: N/A - Device Ordered VTE Drug Contraindication: Treatment Not Indicated
[2024-02-16] MEDS: Magnesium Sulfate/H2O 2 GM/50 ML PIGGYBACK IV (11:23)
[2024-02-16] MEDS: Potassium Chloride ER 20 MEQ TAB.ER.PRT 40 MEQ PO (11:23)
[2024-02-16 12:00] VITALS: BP 151/80; PULSE 82; RESP 20; TEMP 36.6; O2SAT 92
--- NOTE | 2024-02-16 15:42 | P.PNNP_ITS ---
Subjective Subjective Date of Service: 02/16/24 Interval history: no complaints Urine output is improving. Serum creatinine is marginally better. No nausea or vomiting. Physical Exam 2 Vital Signs: Vital Signs: Last Vital Signs Temp 97.9 F 02/16/24 12:00 Pulse 82 02/16/24 12:00 Resp 20 02/16/24 12:00 BP 151/80 H 02/16/24 12:00 Pulse Ox 92 02/16/24 12:00 O2 Del Method Room Air 02/16/24 12:00 BMI result Body Mass Index 23.2 Const: Other: Constitutional : Awake, interactive, looks frail but little stronger today Neck : Normal inspection, Supple Cardiovascular : RRR, no JVP, no lower extremity edema Respiratory : good bilateral air entry, no crackles, wheezes or rhonchi Gastrointestinal: soft, lax, Normal bowel sounds, Non tender Skin : Warm, Dry, dialysis cath in place Neurological : Alert & oriented to self and place only, No focal deficit Objective Data Labs 02/19/24 06:04 02/19/24 06:04 Labs: Laboratory Results - last 24 hr 02/16/24 06:42 WBC 10.8 RBC 2.59 L D Hgb 8.5 L Hct 24.1 L D MCV 93.1 MCH 32.8 MCHC 35.3 RDW 16.9 H Plt Count 242 MPV 10.6 Absolute Nucleated RBC 0.000 Nucleated RBC % (auto) 0.0 Sodium 138 Potassium 3.1 L Chloride 105 Carbon Dioxide 22 Anion Gap 14 BUN 42 H Creatinine 3.86 H Estim Creat Clear Calc 18.3 Estimated GFR 16 Fasting Glucose 134 H Calcium 8.5 Magnesium 1.3 L* Microbiology Microbiology Results: Microbiology 02/07/24 Unknown Urine clean catch - Clean Catch Midstream Urine Culture - Final Escherichia coli Procedures Date of Service Date of Service: 02/20/24 Assessment & Plan Assessment and plan (1) C. difficile diarrhea: Status: Acute (2) UTI (urinary tract infection): Status: Acute (3) Thrombocytopenia: Status: Acute (4) Acute hyponatremia: Status: Acute (5) Transaminitis: Status: Acute (6) Acute kidney failure: Status: Acute (7) Increased anion gap metabolic acidosis: Status: Acute Plan 68-year-old man with severe acute kidney injury in setting of alcohol use. anemia with thrombocytopenia Had metabolic acidosis with hyponatremia. Clinically had uremic symptoms. s/p HD Last dialysis was on 02/12/2024 history of anemia and thrombocytopenia : Concern for HUS/TTP Hematology consultation appreciated C3/C4 normal Platelets improving ADAMTS-13 low LDH elevated Monitor urine output. Await results of kidney biopsy. Specimen sent to [facility] Since creatinine has plateaued and urine output is improving I will hold dialysis today and watch his renal function Time Spent With Patient Time: Total time managing care of this patient today ____ minutes. Progress Note: Quality Stroke Does the patient have a stroke diagnosis?: No
[2024-02-16 15:51] VITALS: BP 176/87; PULSE 90; RESP 20; TEMP 36.8; O2SAT 91
--- NOTE | 2024-02-16 16:06 | PC.NURSE ---
informed of pt's elevated bp
[2024-02-16] MEDS: hydrALAZINE HCl 25 MG TABLET PO ×2 (16:15→19:30)
[2024-02-16 19:30] VITALS: BP 159/78; PULSE 96; RESP 20; TEMP 37.1; O2SAT 93
[2024-02-17] VITALS (7 sets, daily range): BP systolic 140–179; BP diastolic 67–78; PULSE 83–107; RESP 16–21; TEMP 36.4–37.7; O2SAT 92–94
[2024-02-17 07:50] LABS: Hematocrit 24.7 % (42.0-52.0); Hemoglobin 8.8 g/dl (14.0-18.0); Mean Corpuscular HGB Conc 35.6 g/dl (31.0-36.0); Mean Corpuscular Hemoglobin 33.3 pg (27.0-33.0); Mean Corpuscular Volume 93.6 fL (80.0-98.0); Mean Platelet Volume 10.1 fL (9.4-12.4); Platelet Count 242 X10*3/uL (160-400); Red Blood Count 2.64 X10*6/uL (4.60-5.80); Red Cell Distribution Width 16.6 % (11.0-16.0); White Blood Count 9.5 X10*3/uL (4.8-10.8)
[2024-02-17 07:58] LABS: Anion Gap 13 (12-20); Blood Urea Nitrogen 34 mg/dL (9-16); Calcium 8.6 mg/dL (8.4-10.2); Carbon Dioxide 23 mmol/L (22-29); Chloride 105 mmol/L (96-108); Creatinine Clr Calc Pharmacy 24.9; Estimated Glomerular Filt Rate 22; Glucose Fasting 137 mg/dL (60-99); Magnesium 1.5 mg/dL (1.6-2.6); Potassium 3.3 mmol/L (3.3-5.1); Sodium 138 mmol/L (135-145)
[2024-02-17] MEDS: 0.9 % Sodium Chloride Flush 3 ML SYRINGE IVFLUSH ×2 (08:00→15:47)
[2024-02-17] MEDS: amLODIPine Besylate 5 MG TABLET PO (08:01)
[2024-02-17] MEDS: Labetalol HCL 100 MG TABLET PO ×2 (08:01→21:25)
[2024-02-17] MEDS: hydrALAZINE HCl 25 MG TABLET PO ×3 (08:01→21:25)
[2024-02-17] MEDS: Ferrous Sulfate 324 MG TABLET.DR PO ×2 (08:01→15:47)
--- NOTE | 2024-02-17 09:16 | P.PNIM_ITS ---
Subjective Subjective Date of Service: 02/17/24 Interval History: no complaints Physical Exam 2 Vital Signs: Vital Signs: Last Vital Signs Temp 98.1 F 02/17/24 07:15 Pulse 83 02/17/24 07:15 Resp 16 02/17/24 07:15 BP 179/77 H 02/17/24 07:15 Pulse Ox 94 02/17/24 07:15 O2 Del Method Room Air 02/17/24 07:15 BMI result Body Mass Index 23.2 Const: Other: Constitutional : Awake, interactive, looks frail but little stronger today Neck : Normal inspection, Supple Cardiovascular : RRR, no JVP, no lower extremity edema Respiratory : good bilateral air entry, no crackles, wheezes or rhonchi Gastrointestinal: soft, lax, Normal bowel sounds, Non tender Skin : Warm, Dry, dialysis cath in place Neurological : Alert & oriented to self and place only, No focal deficit Objective Data Active Medications Acetaminophen (Acetaminophen 325 Mg Tablet) 650 mg PO Q6H PRN PRN Reason: Pain, Mild (Pain Scale 1-3), fever or headache Amlodipine Besylate (Amlodipine Besylate 5 Mg Tablet) 5 mg PO DAILY [facility]; Protocol Last Admin: 02/17/24 08:01 Dose: 5 mg Documented By: INGE Benzocaine (Throat Lozenge, Medicated Lozenge) 1 lozenge MUCOUS MEM Q2H PRN PRN Reason: Sore Throat Last Admin: 02/13/24 14:46 Dose: 1 lozenge Documented By: CONOR Calcium Carbonate (Calcium Carbonate 750 Mg Tab.Chew) 750 mg PO Q4H PRN PRN Reason: Heartburn Ferrous Sulfate (Ferrous Sulfate 324 Mg Tablet.Dr) 324 mg PO BIDWM [facility] Last Admin: 02/17/24 08:01 Dose: 324 mg Documented By: INGE Heparin Sodium (Porcine) (Heparin Sodium,Porcine 5,000 Unit/Ml Vial) 5,000 unit SUBCUT Q8H [facility] Last Admin: 02/13/24 20:47 Dose: 5,000 unit Documented By: JAMES-KAYLIE Hydralazine HCl (Hydralazine Hcl 25 Mg Tablet) 25 mg PO TID [facility]; Protocol Last Admin: 02/17/24 08:01 Dose: 25 mg Documented By: INGE Labetalol HCl (Labetalol Hcl 100 Mg Tablet) 100 mg PO BID [facility]; Protocol Last Admin: 02/17/24 08:01 Dose: 100 mg Documented By: INGE Magnesium Hydroxide (Milk Of Magnesia 30 Ml Oral.Susp) 30 ml PO DAILY PRN PRN Reason: Constipation Melatonin (Melatonin 3 Mg Tablet) 6 mg PO BEDTIME PRN PRN Reason: Insomnia Metoclopramide HCl (Metoclopramide Hcl 10 Mg/2 Ml Vial) 5 mg IVPUSH Q6H PRN PRN Reason: Hiccups Ondansetron HCl (Ondansetron Hcl 4 Mg/2 Ml Vial) 4 mg IVPUSH Q4H PRN PRN Reason: Nausea and Vomiting Pharmacy Consult (Consult Rx Etoh Phenob Im/Po) 1 each MISCELLANE ONCE PRN; Protocol PRN Reason: Consult order Sodium Chloride (0.9 % Sodium Chloride Flush 3 Ml Syringe) 3 ml IVFLUSH QSHIFT [facility] Last Admin: 02/17/24 08:00 Dose: 3 ml Documented By: INGE Labs 02/17/24 07:23 02/17/24 07:23 Labs: Laboratory Results - last 24 hr 02/17/24 07:23 MCV 93.6 MCH 33.3 H MCHC 35.6 RDW 16.6 H Plt Count 242 MPV 10.1 Absolute Nucleated RBC 0.000 Nucleated RBC % (auto) 0.0 Anion Gap 13 Estim Creat Clear Calc 24.9 Estimated GFR 22 Fasting Glucose 137 H Calcium 8.6 Magnesium 1.5 L Assessment and Plan (1) C. difficile diarrhea: Status: Acute (2) UTI (urinary tract infection): Status: Acute (3) Thrombocytopenia: Status: Acute (4) Acute hyponatremia: Status: Acute (5) Transaminitis: Status: Acute (6) Acute kidney failure: Status: Acute Plan 68M PMH of Alcohol dependence, cervical surgery presented after being found in his own feces in his home by neighbors, weak and altered. found to have severe ARTHUR Acute renal failure with anion-gap metabolic acidosis and acute metabolic encephalopathy due to uremia mental status improved, non oliguric Nephrology following, holding dialysis Hematology following follow BMP - creatinine much improved ADAMTs 13 - activity mildly low, inhibitor mildly high - non diagnostic s/p kidney biopsy 02/14/24 Acute hyponatremia resolved Acute hypomagnesemia and hypokalemia Replaced complicated UTI in male w E.Coli Ceftriaxone course completed C.Diff pcr positive, toxin negative Completed empiric vancomycin 2 days post discontinuing ceftriaxone Iron def. anemia of chronic disease acute on chronic s/p 1 unit prbc 02/14/24, 1 unit PRBC 02/15/2024 Hemoglobin improved appropriately acute Thrombocytopenia ?TTP/hus vs etoh much improved DVT PPx hep sq full code reason for continued hospitalization:awaiting return of renal function Quality Stroke Does the patient have a stroke diagnosis?: No VTE Prior VTE?: No VTE Risk Level:: Medical - moderate - high VTE Device Contraindication: N/A - Device Ordered VTE Drug Contraindication: Treatment Not Indicated
[2024-02-17] MEDS: Magnesium Oxide 400 MG TABLET 800 MG PO (12:51)
[2024-02-18] VITALS (10 sets, daily range): BP systolic 124–152; BP diastolic 59–75; PULSE 81–94; RESP 16–20; TEMP 36.9–37.5; O2SAT 90–93
[2024-02-18] MEDS: 0.9 % Sodium Chloride Flush 3 ML SYRINGE IVFLUSH ×4 (00:29→21:08)
[2024-02-18] MEDS: Ferrous Sulfate 324 MG TABLET.DR PO ×2 (09:04→16:27)
[2024-02-18] MEDS: amLODIPine Besylate 5 MG TABLET PO (09:04)
[2024-02-18] MEDS: hydrALAZINE HCl 25 MG TABLET PO ×3 (09:05→21:07)
[2024-02-18] MEDS: Labetalol HCL 100 MG TABLET PO ×2 (09:05→21:07)
--- NOTE | 2024-02-18 09:56 | P.PNIM_ITS ---
Subjective Subjective Date of Service: 02/18/24 Interval History: no complaints Physical Exam 2 Vital Signs: Vital Signs: Last Vital Signs Temp 99.0 F 02/18/24 08:00 Pulse 88 02/18/24 09:05 Resp 19 02/18/24 08:00 BP 148/68 H 02/18/24 09:05 Pulse Ox 90 L 02/18/24 08:00 O2 Del Method Room Air 02/18/24 08:00 BMI result Body Mass Index 23.2 Const: Other: Constitutional : Awake, interactive, looks frail but little stronger today Neck : Normal inspection, Supple Cardiovascular : RRR, no JVP, no lower extremity edema Respiratory : good bilateral air entry, no crackles, wheezes or rhonchi Gastrointestinal: soft, lax, Normal bowel sounds, Non tender Skin : Warm, Dry, dialysis cath in place Neurological : Alert & oriented to self and place only, No focal deficit Objective Data Active Medications Acetaminophen (Acetaminophen 325 Mg Tablet) 650 mg PO Q6H PRN PRN Reason: Pain, Mild (Pain Scale 1-3), fever or headache Amlodipine Besylate (Amlodipine Besylate 5 Mg Tablet) 5 mg PO DAILY [facility]; Protocol Last Admin: 02/18/24 09:04 Dose: 5 mg Documented By: CONOR Benzocaine (Throat Lozenge, Medicated Lozenge) 1 lozenge MUCOUS MEM Q2H PRN PRN Reason: Sore Throat Last Admin: 02/13/24 14:46 Dose: 1 lozenge Documented By: CONOR Calcium Carbonate (Calcium Carbonate 750 Mg Tab.Chew) 750 mg PO Q4H PRN PRN Reason: Heartburn Ferrous Sulfate (Ferrous Sulfate 324 Mg Tablet.Dr) 324 mg PO BIDWM [facility] Last Admin: 02/18/24 09:04 Dose: 324 mg Documented By: CONOR Heparin Sodium (Porcine) (Heparin Sodium,Porcine 5,000 Unit/Ml Vial) 5,000 unit SUBCUT Q8H [facility] Last Admin: 02/13/24 20:47 Dose: 5,000 unit Documented By: JUSTEN Hydralazine HCl (Hydralazine Hcl 25 Mg Tablet) 25 mg PO TID [facility]; Protocol Last Admin: 02/18/24 09:05 Dose: 25 mg Documented By: CONOR Labetalol HCl (Labetalol Hcl 100 Mg Tablet) 100 mg PO BID [facility]; Protocol Last Admin: 02/18/24 09:05 Dose: 100 mg Documented By: CONOR Magnesium Hydroxide (Milk Of Magnesia 30 Ml Oral.Susp) 30 ml PO DAILY PRN PRN Reason: Constipation Melatonin (Melatonin 3 Mg Tablet) 6 mg PO BEDTIME PRN PRN Reason: Insomnia Metoclopramide HCl (Metoclopramide Hcl 10 Mg/2 Ml Vial) 5 mg IVPUSH Q6H PRN PRN Reason: Hiccups Ondansetron HCl (Ondansetron Hcl 4 Mg/2 Ml Vial) 4 mg IVPUSH Q4H PRN PRN Reason: Nausea and Vomiting Pharmacy Consult (Consult Rx Etoh Phenob Im/Po) 1 each MISCELLANE ONCE PRN; Protocol PRN Reason: Consult order Sodium Chloride (0.9 % Sodium Chloride Flush 3 Ml Syringe) 3 ml IVFLUSH QSHIFT [facility] Last Admin: 02/18/24 09:05 Dose: 3 ml Documented By: CONOR Labs 02/17/24 07:23 02/17/24 07:23 Assessment and Plan (1) C. difficile diarrhea: Status: Acute (2) UTI (urinary tract infection): Status: Acute (3) Thrombocytopenia: Status: Acute (4) Acute hyponatremia: Status: Acute (5) Transaminitis: Status: Acute (6) Acute kidney failure: Status: Acute Plan 68M PMH of Alcohol dependence, cervical surgery presented after being found in his own feces in his home by neighbors, weak and altered. found to have severe ARTHUR Acute renal failure with anion-gap metabolic acidosis and acute metabolic encephalopathy due to uremia mental status improved, non oliguric Nephrology following, holding dialysis follow BMP - creatinine much improved ADAMTs 13 - activity mildly low, inhibitor mildly high - non diagnostic s/p kidney biopsy 02/14/24 - results pending continue to monitor Acute hyponatremia resolved Acute hypomagnesemia and hypokalemia Replaced complicated UTI in male w E.Coli Ceftriaxone course completed htn started labetolol, hydralazine and amlodipine C.Diff pcr positive, toxin negative Completed empiric vancomycin 2 days post discontinuing ceftriaxone Iron def. anemia of chronic disease acute on chronic s/p 1 unit prbc 02/14/24, 1 unit PRBC 02/15/2024 Hemoglobin improved appropriately acute Thrombocytopenia ?TTP/hus vs etoh much improved DVT PPx hep sq full code reason for continued hospitalization:awaiting return of renal function, biopsy results Quality Stroke Does the patient have a stroke diagnosis?: No VTE Prior VTE?: No VTE Risk Level:: Medical - moderate - high VTE Device Contraindication: N/A - Device Ordered VTE Drug Contraindication: Treatment Not Indicated
[2024-02-19] VITALS (7 sets, daily range): BP systolic 125–143; BP diastolic 62–78; PULSE 84–90; RESP 16–18; TEMP 36.6–37.7; O2SAT 92–96
[2024-02-19 07:06] LABS: Anion Gap 15 (12-20); Blood Urea Nitrogen 20 mg/dL (9-16); Calcium 8.8 mg/dL (8.4-10.2); Carbon Dioxide 22 mmol/L (22-29); Chloride 107 mmol/L (96-108); Creatinine Clr Calc Pharmacy 38.1; Estimated Glomerular Filt Rate 36; Glucose Fasting 114 mg/dL (60-99); Potassium 3.5 mmol/L (3.3-5.1); Sodium 140 mmol/L (135-145)
[2024-02-19 07:17] LABS: Hematocrit 26.2 % (42.0-52.0); Mean Corpuscular HGB Conc 34.4 g/dl (31.0-36.0); Mean Platelet Volume 10.3 fL (9.4-12.4); Platelet Count 264 X10*3/uL (160-400); Red Blood Count 2.73 X10*6/uL (4.60-5.80); Red Cell Distribution Width 15.8 % (11.0-16.0); White Blood Count 7.9 X10*3/uL (4.8-10.8)
[2024-02-19] MEDS: amLODIPine Besylate 5 MG TABLET PO (08:00)
[2024-02-19] MEDS: hydrALAZINE HCl 25 MG TABLET PO ×2 (08:00→15:15)
[2024-02-19] MEDS: 0.9 % Sodium Chloride Flush 3 ML SYRINGE IVFLUSH ×2 (08:00→15:15)
[2024-02-19] MEDS: Labetalol HCL 100 MG TABLET PO (08:00)
[2024-02-19] MEDS: Acetaminophen 325 MG TABLET 650 MG PO (08:00)
[2024-02-19] MEDS: Ferrous Sulfate 324 MG TABLET.DR PO (08:01)
--- NOTE | 2024-02-19 08:40 | HO.PM.IMPN ---
Subjective Subjective Date of Service: 02/19/24 Interval History: no complaints Physical Exam Vital Signs: Vital Signs: Last Vital Signs Temp 99.8 F 02/19/24 07:07 Pulse 90 02/19/24 08:00 Resp 18 02/19/24 07:07 BP 143/78 H 02/19/24 08:00 Pulse Ox 93 02/19/24 07:07 O2 Del Method Room Air 02/19/24 07:07 BMI result Body Mass Index 23.2 Const: Other: Constitutional : Awake, interactive Neck : Normal inspection, Supple Cardiovascular : RRR, no JVP, no lower extremity edema Respiratory : good bilateral air entry, no crackles, wheezes or rhonchi Gastrointestinal: soft, lax, Normal bowel sounds, Non tender Skin : Warm, Dry, dialysis cath in place , left arm ecchymosis (not new) Neurological : Alert & oriented to self and place only, No focal deficit Objective Data Active Medications Acetaminophen (Acetaminophen 325 Mg Tablet) 650 mg PO Q6H PRN PRN Reason: Pain, Mild (Pain Scale 1-3), fever or headache Last Admin: 02/19/24 08:00 Dose: 650 mg Documented By: HITESH Amlodipine Besylate (Amlodipine Besylate 5 Mg Tablet) 5 mg PO DAILY [facility]; Protocol Last Admin: 02/19/24 08:00 Dose: 5 mg Documented By: HITESH Benzocaine (Throat Lozenge, Medicated Lozenge) 1 lozenge MUCOUS MEM Q2H PRN PRN Reason: Sore Throat Last Admin: 02/13/24 14:46 Dose: 1 lozenge Documented By: CONOR Calcium Carbonate (Calcium Carbonate 750 Mg Tab.Chew) 750 mg PO Q4H PRN PRN Reason: Heartburn Ferrous Sulfate (Ferrous Sulfate 324 Mg Tablet.Dr) 324 mg PO BIDWM [facility] Last Admin: 02/19/24 08:01 Dose: 324 mg Documented By: HITESH Heparin Sodium (Porcine) (Heparin Sodium,Porcine 5,000 Unit/Ml Vial) 5,000 unit SUBCUT Q8H [facility] Last Admin: 02/13/24 20:47 Dose: 5,000 unit Documented By: JAMES-KAYLIE Hydralazine HCl (Hydralazine Hcl 25 Mg Tablet) 25 mg PO TID [facility]; Protocol Last Admin: 02/19/24 08:00 Dose: 25 mg Documented By: HITESH Labetalol HCl (Labetalol Hcl 100 Mg Tablet) 100 mg PO BID [facility]; Protocol Last Admin: 02/19/24 08:00 Dose: 100 mg Documented By: HITESH Magnesium Hydroxide (Milk Of Magnesia 30 Ml Oral.Susp) 30 ml PO DAILY PRN PRN Reason: Constipation Melatonin (Melatonin 3 Mg Tablet) 6 mg PO BEDTIME PRN PRN Reason: Insomnia Metoclopramide HCl (Metoclopramide Hcl 10 Mg/2 Ml Vial) 5 mg IVPUSH Q6H PRN PRN Reason: Hiccups Ondansetron HCl (Ondansetron Hcl 4 Mg/2 Ml Vial) 4 mg IVPUSH Q4H PRN PRN Reason: Nausea and Vomiting Pharmacy Consult (Consult Rx Etoh Phenob Im/Po) 1 each MISCELLANE ONCE PRN; Protocol PRN Reason: Consult order Sodium Chloride (0.9 % Sodium Chloride Flush 3 Ml Syringe) 3 ml IVFLUSH QSHIFT [facility] Last Admin: 02/19/24 08:00 Dose: 3 ml Documented By: HITESH Labs 02/19/24 06:04 02/19/24 06:04 Labs: Laboratory Results - last 24 hr 02/19/24 06:04 MCV 96.0 MCH 33.0 MCHC 34.4 RDW 15.8 Plt Count 264 MPV 10.3 Absolute Nucleated RBC 0.000 Nucleated RBC % (auto) 0.0 Anion Gap 15 Estim Creat Clear Calc 38.1 Estimated GFR 36 Fasting Glucose 114 H Calcium 8.8 Assessment and Plan (1) C. difficile diarrhea: Status: Acute (2) UTI (urinary tract infection): Status: Acute (3) Thrombocytopenia: Status: Acute (4) Acute hyponatremia: Status: Acute (5) Transaminitis: Status: Acute (6) Acute kidney failure: Status: Acute Plan 68M PMH of Alcohol dependence, cervical surgery presented after being found in his own feces in his home by neighbors, weak and altered. found to have severe ARTHUR Acute renal failure with anion-gap metabolic acidosis and acute metabolic encephalopathy due to uremia mental status improved, non oliguric Nephrology following, holding dialysis follow BMP - creatinine much improved, 1.86 today ADAMTs 13 - activity mildly low, inhibitor mildly high - non diagnostic s/p kidney biopsy 02/14/24 - results pending continue to monitor Acute hyponatremia resolved Acute hypomagnesemia and hypokalemia Replaced complicated UTI in male w E.Coli Ceftriaxone course completed htn started labetolol, hydralazine and amlodipine C.Diff pcr positive, toxin negative Completed empiric vancomycin 2 days post discontinuing ceftriaxone Iron def. anemia of chronic disease acute on chronic s/p 1 unit prbc 02/14/24, 1 unit PRBC 02/15/2024 Hemoglobin improved appropriately acute Thrombocytopenia ?TTP/hus vs etoh Resolved DVT PPx hep sq full code reason for continued hospitalization:awaiting biopsy results Quality Stroke Does the patient have a stroke diagnosis?: No VTE Prior VTE?: No VTE Risk Level:: Medical - moderate - high VTE Device Contraindication: N/A - Device Ordered VTE Drug Contraindication: Treatment Not Indicated
--- NOTE | 2024-02-19 10:22 | MHC.CM.PN ---
Patient is not yet medically cleared for dc (Pathology Report is pending); PT is recommending STR and CM will continue to follow.
--- NOTE | 2024-02-19 10:30 | P.PNNP_ITS ---
Subjective Subjective Date of Service: 02/19/24 Interval history: 68M with etoh dependence, cervical surgery presented after being found in his own feces in his home by neighbors, weak and altered. found to have severe ARTHUR. pt uremic on admission with Cr 14 and GFR of 3, received multiple rounds of HD pt also had significant thrombocytopenia, question of TTP/HUS, renal biopsy is pending thrombocytopenia has since resolved last HD was on 02/11, pt has continued to have improvement in renal function without HD. Creatinine continues to trend down, most recent 1.86 today. pt reports feels some fatigue/lack of energy but otherwise feeling well today continues to make urine denies nausea/vomiting pt awake, alert and conversant at bedside, eating breakfast. Physical Exam 2 Vital Signs: Vital Signs: Last Vital Signs Temp 99.8 F 02/19/24 07:07 Pulse 90 02/19/24 08:00 Resp 18 02/19/24 07:07 BP 143/78 H 02/19/24 08:00 Pulse Ox 93 02/19/24 07:07 O2 Del Method Room Air 02/19/24 07:07 BMI result Body Mass Index 23.2 Const: General: no acute distress Orientation/consciousness: oriented to person, oriented to place and oriented to time Neck: Neck: Yes no JVD Resp: Effort & Inspection: able to speak in complete sentences A uscultation: clear to auscultation bilaterally Cardio: Jugular venous distension: no JVD Rate: regular rate Rhythm: r egular rhythm Heart sounds: S1 normal heart sound present and S2 normal heart sound present GI: Palpation (GI): Soft to palpation Rectal Exam - Male: No tenderness : General: Yes no CVA tenderness Back/Spine/Pelvis: Back: no CVA tenderness Skin: Rashes: no rashes Neuro: General: oriented to person, oriented to place and oriented to time Extrem: General: Yes normal to inspection, No edema and No pedal edema Objective Data Labs 02/19/24 06:04 02/19/24 06:04 Labs: Laboratory Results - last 24 hr 02/19/24 06:04 WBC 7.9 RBC 2.73 L Hgb 9.0 L Hct 26.2 L MCV 96.0 MCH 33.0 MCHC 34.4 RDW 15.8 Plt Count 264 MPV 10.3 Absolute Nucleated RBC 0.000 Nucleated RBC % (auto) 0.0 Sodium 140 Potassium 3.5 Chloride 107 Carbon Dioxide 22 Anion Gap 15 BUN 20 H Creatinine 1.86 H Estim Creat Clear Calc 38.1 Estimated GFR 36 Fasting Glucose 114 H Calcium 8.8 Microbiology Microbiology Results: Microbiology 02/07/24 Unknown Urine clean catch - Clean Catch Midstream Urine Culture - Final Escherichia coli Procedures Date of Service Date of Service: 02/19/24 Assessment & Plan Assessment and plan (1) Thrombocytopenia: Status: Acute (2) Acute kidney failure: Status: Acute (3) UTI (urinary tract infection): Status: Acute (4) Acute hyponatremia: Status: Acute Plan Acute renal failure, tubular injury requiring HD pt has made significant renal function recovery, creatinine continues to trend down without HD recommend continue to hold dialysis renal biopsy results pending thrombocytopenia has resolved, H&H is stable continue oral iron replacement and continue to monitor UTI has been treated with abx continue current medication regimen of amlodipine 5mg daily, labetolol 100mg PO BID, hydralazine 25mg PO TID for blood pressure control continue to follow BMP, electrolytes have normalized continue to monitor blood pressure and I&O Ok to remove urinary catheter and follow up in 1-2 weeks outpatient nephrology office Discussed with Dr Lujan Time Spent With Patient Time: Total time managing care of this patient today ____ minutes. Progress Note: Quality Stroke Does the patient have a stroke diagnosis?: No
--- NOTE | 2024-02-19 10:37 | PC.NURSE ---
Per , remove Diaz and start voiding trial. Diaz removed at 10:30 02/19/24. Pt tolerated well, [place] cath in place. Pt due to void 6 hr from now at 1630.
--- NOTE | 2024-02-19 12:23 | MHC.CM.PN ---
CM spoke with Son/HCP/Master @ [phone] and addressed IMM with him; original will be mailed certified letter to Son/HCP/Master @ [phone] and a copy has been placed on the chart. Master's address is [address] [place] [address] [place] [address].
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
--- NOTE | 2024-02-19 12:52 | MHC.CM.PN ---
Patient has been medically cleared for dc to SNF/STR today. [facility], via [facility]. CM spoke with Son/HCP/Master @ [phone] and informed him of the dc plan. IMM was addressed with Master and original will be mailed certified letter to him and a copy has been placed on the chart.
--- NOTE | 2024-02-19 14:24 | PM.PROC ---
Brief Operative Note Date of procedure: 02/19/24 Pre-op diagnosis: ARTHUR Post-op diagnosis: same Procedure: Right IJ Ahmet removed in patient's room. Pressure held until hemostasis assured. DSD applied. No immediate complications.
--- NOTE | 2024-02-19 14:36 | MHC.CM.PN ---
CM left a detailed message for [facility] Protective Services Worker/Jeanie @ [phone]. [phone], informing her of today's dc to [facility].
== END 2024-02-19 16:58 | disposition skilled nursing facility (03) | DRG 682 ==
LOC: HO.ED 16:46 → HO.EDOVER 18:28 → HO.IMC 02-08 00:17
PROVIDERS: Internal Medicine; Physician Assistant Medical; Physician Assistant Surgical; Radiology Vascular & Interventional Radiology; Student in an Organized Health Care Education/Training Program; Admitting Provider Student in an Organized Health Care Education/Training Program; Emergency Provider Emergency Medicine; Referring Provider Internal Medicine Hypertension Specialist; Visit Provider Internal Medicine
PROC: 06H033Z Insertion of Infusion Device into Inferior Vena Cava, Percutaneous Approach (ICD-10-PCS; principal; 2024-02-08 11:30)
DX: N17.0 Acute kidney failure with tubular necrosis (principal); G93.41 Metabolic encephalopathy; E22.2 Syndrome of inappropriate secretion of antidiuretic hormone; A04.72 Enterocolitis due to Clostridium difficile, not specified as recurrent; E87.20 Acidosis, unspecified; T76.01XA Adult neglect or abandonment, suspected, initial encounter; N39.0 Urinary tract infection, site not specified; E83.42 Hypomagnesemia; D69.59 Other secondary thrombocytopenia; Z22.1 Carrier of other intestinal infectious diseases; E87.6 Hypokalemia; D50.9 Iron deficiency anemia, unspecified; D63.8 Anemia in other chronic diseases classified elsewhere; F10.20 Alcohol dependence, uncomplicated; B96.20 Unspecified Escherichia coli [E. coli] as the cause of diseases classified elsewhere; Z20.822 Contact with and (suspected) exposure to COVID-19; Z79.899 Other long term (current) drug therapy
CPT/HCPCS: 0241U; 36415; 36558; 36589; 50200; 70450; 71260; 72125; 74177; 77012; 80048; 80053; 80076; 80307; 81001; 82550; 82570; 82803; 82947; 83010; 83520; 83540; 83605; 83615; 83735; 83930; 84156; 84300; 84484; 85007; 85025; 85027; 85045; 85335; 85397; 85610; 85652; 85730; 86021; 86160; 86704; 86706; 86850; 86900; 86901; 86923; 87086; 87088; 87186; 87324; 87340; 87493; 87651; 88300; 88305; 88313; 88346; 88348; 88350; 90999; 93005; 97161; 99152; 99153; 99285; C1752; C1758; C1769; J0696; J1644; J1756; J2405; J2560; J2597; J2765; J3475; P9016; Q9967

== ENCOUNTER 2024-02-07 18:15 | Outpatient (BNV) | payer MEDICARE, SELFPAY | END 2024-02-08 11:00 | PROVIDERS: Admitting Provider Student in an Organized Health Care Education/Training Program; Emergency Provider Emergency Medicine; Visit Provider Student in an Organized Health Care Education/Training Program | DX: N17.9 Acute kidney failure, unspecified (principal) | CPT/HCPCS: 36556; 76937; 77001 ==

== ENCOUNTER 2024-02-07 18:15 | Outpatient (BNV) | payer MEDICARE, SELFPAY | END 2024-02-19 14:45 | PROVIDERS: Admitting Provider Student in an Organized Health Care Education/Training Program; Emergency Provider Emergency Medicine; Referring Provider Internal Medicine Hypertension Specialist; Visit Provider Physician Assistant Surgical | DX: Z45.2 Encounter for adjustment and management of vascular access device (principal) | CPT/HCPCS: 36589 ==

== ENCOUNTER 2024-02-07 18:15 | Outpatient (BNV) | payer MEDICARE, SELFPAY | END 2024-02-14 11:41 | PROVIDERS: Admitting Provider Student in an Organized Health Care Education/Training Program; Emergency Provider Emergency Medicine; Visit Provider Student in an Organized Health Care Education/Training Program | DX: N17.9 Acute kidney failure, unspecified (principal) | CPT/HCPCS: 50200; 77012 ==

== ENCOUNTER → 2024-02-07 18:15 | Outpatient (BNV) | payer MEDICARE, SELFPAY | PROVIDERS: Admitting Provider Student in an Organized Health Care Education/Training Program; Emergency Provider Emergency Medicine; Visit Provider Internal Medicine | DX: D69.6 Thrombocytopenia, unspecified (principal) | CPT/HCPCS: 99222; 99231 ==

== ENCOUNTER → 2024-02-07 18:15 | Outpatient (BNV) | payer MEDICARE, SELFPAY | PROVIDERS: Admitting Provider Student in an Organized Health Care Education/Training Program; Emergency Provider Emergency Medicine; Visit Provider Student in an Organized Health Care Education/Training Program | DX: D69.6 Thrombocytopenia, unspecified (principal); A04.72 Enterocolitis due to Clostridium difficile, not specified as recurrent; N39.0 Urinary tract infection, site not specified; E87.1 Hypo-osmolality and hyponatremia | CPT/HCPCS: 99223; 99232; 99233; 99239; 99499 ==

== ENCOUNTER → 2024-02-07 18:15 | Outpatient (BNV) | payer MEDICARE, SELFPAY | PROVIDERS: Admitting Provider Student in an Organized Health Care Education/Training Program; Emergency Provider Emergency Medicine; Visit Provider Internal Medicine Hypertension Specialist | DX: N17.9 Acute kidney failure, unspecified (principal); E87.29 Other acidosis; D69.6 Thrombocytopenia, unspecified; E87.1 Hypo-osmolality and hyponatremia | CPT/HCPCS: 90935; 99232 ==